=== PATIENT | male | born 2000 | race Caucasian/White ===

== ENCOUNTER 2025-02-25 14:04 | Outpatient (CLI) | payer OTHER, SELFPAY | END 2025-02-25 14:05 | disposition home or self-care (01) | LOC: AMB 02-28 18:43 | PROVIDERS: Visit Provider Emergency Medicine | DX: S49.92XA Unspecified injury of left shoulder and upper arm, initial encounter (principal); V44.5XXA Car driver injured in collision with heavy transport vehicle or bus in traffic accident, initial encounter; Y92.410 Unspecified street and highway as the place of occurrence of the external cause | CPT/HCPCS: A0425; A0429 ==

== ENCOUNTER 2025-02-25 14:39 | Emergency (ER) | payer OTHER, SELFPAY ==
--- OUTSIDE RECORDS SUMMARY | 2024-10-25 06:30 | XMS_ITS ---
Author Organization [facility] Address [address] [place] [address] [address] [place] [address] Care Team Providers Care Lead Manufacturing Engineering Tech Name Role Phone Yuniel Camejo Primary Care Provider [phone] Yesi Abbott Unavailable Unavailable Sonya Allen Unavailable [phone] REASON FOR VISIT LVM for pt regarding missed appt, reminded of next appt Encounters Encounter Location Date Provider Diagnosis [facility] [address] [place] [address] 10/25/2024 Sonya Allen Cervicalgia M54.2 ; Low back pain, unspecified M54.50 ; Dorsalgia, unspecified M54.9 ; Cervicogenic headache G44.86 and Migraine without aura, not intractable, without status migrainosus G43.009 Assessments Encounter Date Diagnosis (ICD Code) Assessment Notes Treatment Notes Treatment Clinical Notes Section Notes 10/25/2024 Cervicalgia (ICD-10 - M54.2) 10/25/2024 Low back pain, unspecified (ICD-10 - M54.50) 10/25/2024 Dorsalgia, unspecified (ICD-10 - M54.9) 10/25/2024 Cervicogenic headache (ICD-10 - G44.86) 10/25/2024 Migraine without aura, not intractable, without status migrainosus (ICD-10 - G43.009) Plan Of Treatment No Information History and Physical Notes * HPI (History of Present Illness) Category Sub-Category Detail Notes Category Not es *Therapy Visit Status Session Data Today's Se ssion Date: 10/21/2024 Therapy Episode Status: Active Therapy Sessions Completed (#): 31 Authorized PT Visits: 18 PT Visits Compl eted: 14, Expiration Date: 12/01/24 Authorized OT Visits: 18 OT Visits Compl eted: 17 Expiration Date: 12/01/24 PT Goal Review Date: 10/17/2024 OT Goal Review Date: 08/23/2024 Physical Examination Category Sub-Category Detail Notes Section Note s Lumbar Extension Exercise Performance Exercise Torque (ft-lbs): 135 Extension ROM (0): 0 Flexion ROM (72): 45 Repetitions: 15 Rating of Perceived Exertion (0-10): 7.2 Last Rep Status: Met Repetition Goal Exercise Plan: 2 x week Lumbar Extension Positioning & Goals Positioning TDC: 21 CB: 375 at: 0 Femur: 6 Other: Flat Rollers Goals Low Goal Male (80%BW): 184 High Goal Male (100%BW, Max 225): 184 80 % high end goal d/t body composition Isotonic Exercise Machine Summary Exercise Summary Able to increase loads for L E, TR, CE & CR. Tolerated all of these well. Cervical Extension Positioni ng & Goals Positioning Seat Height: 280 TDC: 48 CB: 1.6 at:: 18 deg Other: Footstool Goals Low Goal Male (Max 282): 282 High Goal Male (Max 312): 312 Cervical Extension Exercise Performance Exercise Torque (in-lbs): 264 Extension ROM (0): 0 Flexion ROM (126): 126 Repetitions: 15 RPE (0-10): 4 Last Rep Status: Met Repetition Goal Exercise Plan: 1 x week Cervical Rotation Positioning & Goals Positioning Seat Hei ght: 50 Back Pad: 3 inch Head Pad: Low Goals Low Goal Male (Max 80): 80 High Goal Male (Max 110): 110 Cervical Rotation Exercise Performance Exercise Torque ( in-lbs): 84 Rotation Left (60-72): 60 Rotation Right (60-72): 60 Left Repetitions: 22 Right Repetitions: 15 RPE (0-10): 5 Last Rep Status: Met Repetition Goal Exercise Plan: 1 x week Torso Rotation Positioning & Goals Positioning [place]: 4.0 Footboard: 2 Goals Low Goal Male (40%BW): 90 High Goal Male (45%BW, Max 110): 103 Torso Rotation Exercise Performance Exercise Torque (ft- lbs): 92 Rotation Left (48): 42 Rotation Right (48): 42 Left Repetitions: 15 *Prefers to start w / L side Right Repetitions: 15 RPE (0-10): 8 Last Rep Status: Met Exertion Goal, Met Repetition Goal Exercise Plan: 2 x week Progress Notes * Peter MURRIETA JDOB: [birth year] (24 yo M)Acc No.[id number]:10/25/2024 Daily Note Patient: Peter Duran Provider: Lianne Allen DPT :2000 A ge:24 Y S ex:Male Date:10/25/2024 Phone: Address:[address] [place] [address] [place]OS, [phone] Pcp:Yuniel Camejo Subjective: * Chief Complaints: * L VM for pt regarding missed appt, reminded of next appt * HPI: * Therapy Visit Status: Session Data T loreta's Session Date 0 10/21/2024 T herapy Episode Status A ctive T herapy Sessions Completed (#) 3 1 A uthorized PT Visits 1 8 PT Visits Completed: 14, Expiration Date: 12/01/24 A uthorized OT Visits 1 8 OT Visits Completed: 17 Expiration Date: 12/01/24 P T Goal Review Date 0 10/17/2024 O T Goal Review Date 0 08/23/2024 T herapy Visit Subjective: Still dealing w/ irritation in the L side of his neck. Notes that the machines (in particular cervical MedX) has been giving him migraines. Needs to leave session early. Objective: * Physical Examination: C ervical Extension Positioning & Goals: Positioning S eat Height 2 80 T DC 4 8 C B 1 .6 a t: 1 8 deg O ther F ootstool Goals L ow Goal Male (Max 282) 2 82 H igh Goal Male (Max 312) 3 12 C ervical Extension Exercise Performance: Exercise T orque (in-lbs) 2 64 E xtension ROM (0) 0 F lexion ROM (126) 1 26 R epetitions 1 5 R PE (0-10) 4 L ast Rep Status M et Repetition Goal E xercise Plan 1 x week L umbar Extension Positioning & Goals: Positioning T DC 2 1 C B 3 75 a t 0 F emur 6 O ther F lat Rollers Goals L ow Goal Male (80%BW) 1 84 H igh Goal Male (100%BW, Max 225) 1 84 80% high end goal d/t body composition L umbar Extension Exercise Performance: Exercise T orque (ft-lbs) 1 35 E xtension ROM (0) 0 F lexion ROM (72) 4 5 R epetitions 1 5 R ating of Perceived Exertion (0-10) 7 .2 L ast Rep Status M et Repetition Goal E xercise Plan 2 x week C ervical Rotation Positioning & Goals: Positioning S eat Height 5 0 B ack Pad 3 inch H ead Pad L ow Goals L ow Goal Male (Max 80) 8 0 H igh Goal Male (Max 110) 1 10 C ervical Rotation Exercise Performance: Exercise T orque (in-lbs) 8 4 R otation Left (60-72) 6 0 R otation Right (60-72) 6 0 L eft Repetitions 2 2 R ight Repetitions 1 5 R PE (0-10) 5 L ast Rep Status M et Repetition Goal E xercise Plan 1 x week T orso Rotation Positioning & Goals: Positioning G ate 4 .0 F ootboard 2 Goals L ow Goal Male (40%BW) 9 0 H igh Goal Male (45%BW, Max 110) 1 03 T orso Rotation Exercise Performance: Exercise T orque (ft-lbs) 9 2 R otation Left (48) 4 2 R otation Right (48) 4 2 L eft Repetitions 1 5 *Prefers to start w/ L side R ight Repetitions 1 5 R PE (0-10) 8 L ast Rep Status M et Exertion Goal, Met Repetition Goal E xercise Plan 2 x week I sotonic Exercise Machine Summary: Exercise Summary A ble to increase loads for LE, TR, CE & CR. Tolerated all of these well.. Therapeutic Interventions: * Therapeutic Interventions: 1 . * HEP List: Stretch & Releases Neck Stretching HEP : Upper Trapezius, Levator Scapulae, Scalene, tennis ball for self release at scap, Occipital Release Qsovl-Trui-Hxlhryps Stretching HEP : Scapular and Thoracic Stretch (Needle) - Quadruped Low Back and Hip Stretching HEP : Single KTC (supine) one leg straight, Trunk Rotation (double knee), Hamstring (using strap), Piriformis (modified supine), Hamstring (seated), roller tool for HS release 2 . * HEP List: Strength & Function Neck Strength HEP : Cervical Deep Neck Flexor (Supine Head Nod) Mid-Back Strength HEP : - Band Row (40#)- Band Pull Back (30#)-, 3 Position Lift- Chest Press,-, Tricep Press Low Back & Core Strength HEP : Lower Abdominal L2, side lying leg raise Hip & Core Strength HEP : Bridge with SB, Sit to Stand L1, Pallof Press 3 . * Patient Education List Education Provided : Functional Activity Goals, Ch 3: Self Treatments - Release, Ice, Heat * Therapy Assessment and Plan: 1. T herapy Session Assessment Summary : Pt doing well since last session, no major changes. Does still have increased irritation on the L side of his neck. Reports that he is also still getting migraines after using cervical MedX, wants to continue to utilize and his migraines are decreased in intensity with limited reps. Able to increase loads for all 4 MedX machines today - LE, CR, CE, & TR. Tolerated all of these well. [place] session d/t him needing to leave early 2. * Therapy Session Plan Plan Details : *Patient Valued Goals/Activities: full duty for work, standing tolerance, walking*MD/CATHY Follow Up Plan: after [address] Camejo,*Visits Need Insurance Auth after: 18 visits of OT and 18 of PT,* Incoming Referral Tracking - YES per visit status,wants to focus on building HEP for exercise routine for home use and gym usePlan:- MedX: LE, RT, CE, CR, glute machine,- alternate cervcial to start, LB is priority- Review stretches and TPR,- review SANCHEZ management- intro midback and core strengthening- Functional training with the following focus: improving capacity with all lifts Assessment: * Assessment: 1. L ow back pain, unspecified - M54.50 (Primary) 2 . C ervicalgia - M54.2? 3. D orsalgia, unspecified - M54.9 4 . C ervicogenic headache - G44.86 5 . M igraine without aura, not intractable, without status migrainosus - G43.009 Billing Information: * Procedure Codes: * Electronic signature of Petra Allen DPT on 02/25/2025 at 03:48 PM ELECTRICIAN SHOP Sign off status: Pending * Provider: Lianne Allen DPT Date: 0 10/25/2024 Generated for Lisette wheeler/Umesh/Amy on: 04/27/2024 03:48 PM ELECTRICIAN SHOP
--- OUTSIDE RECORDS SUMMARY | 2024-10-31 06:30 | XMS_ITS ---
Author Organization [facility] Address [address] [place] [address] [address] [place] [address] Care Team Providers Care Bottoming Machine Operator Name Role Phone Yuniel Camejo Primary Care Provider Yesi Abbott Unavailable Unavailable Sonya Allen Unavailable [phone] Encounters Encounter Location Date Provider Diagnosis [facility] [address] [place] [address] 10/31/2024 Sonya Allen Plan Of Treatment No Information Progress Notes * Peter MURRIETA JDOB: [birth year] (24 yo M)Acc No.[id number]:10/31/2024 Daily Note Patient: Peter Duran Provider: Lianne Allen DPT :2000 A ge:24 Y S ex:Male Date:10/31/2024 Phone: Address:[address] [place] [address], [place] [phone] Pcp:Yuniel Camejo Billing Information: * Procedure Codes: * Electronic signature of Petra Allen DPT on 02/25/2025 at 03:48 PM PIER WORKER Sign off status: Pending * Provider: Lianne Allen DPT Date: 10/31/2024 Generated for Lisette wheeler/Umesh/eTransmitting on: 04/27/2024 03:48 PM PIER WORKER
--- OUTSIDE RECORDS SUMMARY | 2025-01-11 08:30 | XMS_ITS | Encounter Summary ---
Author Organization [place] Address [address] [facility] [place] [address] Care Team Providers Care Suction Dredge Dumping Supervisor Name Role Phone Evan Navarro MD Unavailable [phone] Bernie Florez PA-C Unavailable Marisol Palma APRN VACUUM DRIER OPERATOR Unavailable Bernie Florez PA-C Primary Care Pro vider Leidy Richard PA-C Unavailable [phone] Encounter Details Date Type Department Care Team (Late st Contact Info) Description 01/11/2025 9:30 AM CDT Lab [facility] [address] [place] [address] Hypotestosteronemia in male Social History Tobacco Use Types Packs/Day Years Used Date Smoking Tobacco: Former Cigarettes Smokeless Tobacco: Current Comments:pouches Alcohol Use Standard Drinks/Week Comments Yes 0 (1 standard drink = 0.6 oz pur e alcohol) Social Connection and Isolation Panel Answer Date Recorded Frequency of Communication with Friends and Fami ly Not on file 12/04/2023 How often do you get together with friends or re latives? Once a week 12/04/2023 Attends Shinto Services Not on file 12/03 Active Member of Clubs or Organizations Not on f ile 12/04/2023 Attends Club or Organization Meetings Not on lincoln e 12/04/2023 Marital Status Not on file 12/04/2023 PHQ-2 Answer Date Recorded PHQ-2 Score 6 04/01/2024 [facility] - Occupational Stress Questionnaire Answer Date Recorded Do you feel stress - tense, restless, nervous, or anxious, or unable to sleep at night because your mind is troubled all the time - these days? To some extent 12/04/2023 Exercise Vital Sign Answer Date Recorde d On average, how many days pe r week do you engage in moderate to strenuous exercise (like a brisk walk)? 0 days Minutes of Exercise per Session Not on file 12/04/2023 Adolescent Education Answer Date Record ed Getting School Help Needed Not on file 12/20 Food Insecurity Answer Date Recorded Within the past 12 months, d id you worry that your food would run out before you got money to buy more? No 12/04/2023 Within the past 12 months, d id the food you bought just not last and you didn t have money to get more? No 12/04/2023 Housing Stability Answer Date Recorded Do you have housing? (Padmini g is defined as stable permanent housing and does not include staying outside in a car, in a tent, in an abandoned building, in an overnight mcfp, or couch-surfing.) Yes 12/04/2023 Are you worried about losing your housing? No 12/04/2023 Financial Resource Strain Answer Date R ecorded Within the past 12 months, h ave you or your family members you live with been unable to get utilities (heat, electricity) when it was really needed? No 12/04/2023 Transportation Needs Answer Date Record ed Within the past 12 months, h as lack of transportation kept you from medical appointments, getting your medicines, non-medical meetings or appointments, work, or from getting things that you need? No 12/04/2023 Interpersonal Safety Answer Date Record ed Do you feel physically and e motionally safe where you currently live? Yes 08/11/2024 Within the past 12 months, h ave you been hit, slapped, kicked or otherwise physically hurt by someone? No 08/11/2024 Within the past 12 months, h ave you been humiliated or emotionally abused in other ways by your partner or ex-partner? No 08/11/2024 Sex and Gender Information Value Date Recorded Sex Assigned at Male 01/27/2022 6:52 AM CDT Legal Sex Male 1:00 PM CDT Gender Identity Male 01/27/2022 6:52 AM CDT Sexual Orientation Straight 01/27/2022 6: 52 AM CDT documented as of this encounter Plan of Treatment Upcoming Encounters Date Type Department Care Team (Late st Contact Info) Description 03/14/2025 1:30 PM LAB NURSE Office Visit [place] [address] [address] [place] [phone] 03/15/2025 8:30 AM LAB NURSE Documentation Only [facility] [address] [place] [address] [place] [phone] 07/20/2025 9:00 AM CDT Office Visit [place] [address] [place] [phone] Leidy Richard PA-C [address] [place] [id number] documented as of this encounter Procedures Procedure Name Priority Date/Time Associated Diagnosis Comments TESTOSTERONE FREE AND TOTAL Routine 01/11/2025 9:42 AM CDT Hypotestosteronemia in male SEX HORMONE BINDING GLOBULIN Routine 01/11/2025 9:42 AM CDT Hypotestosteronemia in male TESTOSTERONE FREE AND TOTAL Routine 01/11/2025 9:42 AM CDT Hypotestosteronemia in male documented in this encounter Results * Testosterone Free and Total (01/11/2025 9:42 AM CDT) Free Testosterone Calculated 8.07 ng/dL 01/13/2025 2:01 PM CDT [facility] Comment: Male Pj Ranges: Pj Stage I: Less than or equal to 0.37 ng/dL Pj Stage II: 0.03-2.1 ng/dL Pj Stage III: 0.10-9.8 ng/dL Pj Stage IV: 3.5-16.9 ng/dL Pj Stage V: 4.1-23.9 ng/dL Testosterone Total 271 240 - 950 ng/dL 01/13/2025 2:01 PM CDT [facility] Blood BLOOD SPECIMEN / Unknown Venipuncture / Unknown 01/11/2025 9:42 AM CDT 01/11/2025 9:42 AM CDT Narrative [facility] - 01/13/2025 2:01 PM CDT This test was developed and its performance characteristics determined by the [facility], Special Chemistry Laboratory. It has not been cleared or approved by the FDA. The laboratory is regulated under CLIA as qualified to perform high-complexity testing. This test is used for clinical purposes. It should not be regarded as investigational or for research. Bernie Florez PA-C LAB - BLOOD ORDER MIRNA Final Result Performing Organization Address City/[facility]/ZIP Co de Phone Number SPECIAL DRUG/[facility] Special Drug/[facility] [address] [facility], [address] * Sex Hormone Binding Globulin (01/11/2025 9:42 AM CDT) Sex Hormone Binding Globulin 13 11 - 80 nmol/L 01/11/2025 5:04 PM CDT [facility] Blood BLOOD SPECIMEN / Unknown Venipuncture / Unknown 01/11/2025 9:42 AM CDT 01/11/2025 9:42 AM CDT Bernie Florez PA-C LAB - BLOOD ORDER MIRNA Final Result LABORATORY [facility] [place] [facility] [address] [facility], [address] documented in this encounter Visit Diagnoses Diagnosis Hypotestosteronemia in male documented in this encounter Additional Health Concerns Assessment Noted Time PHQ-9 Depression Total Score: 20 025 10:01 AM LAB NURSE documented as of this encounter Care Teams Suction Dredge Dumping Supervisor Relationship Specialty Start Date End Date Bernie Florez PA-C [address] [place] [address] PCP - General Family Medicine 08/11/24 Evan Navarro MD [address] [facility] [place] [address] Assigned Musculoskeletal Provider 01/25/22 01/18/25 Bernie Florez PA-C [address] [address] [place] [address] Assigned PCP 07/05/22 Marisol Palma APRN CNP [address] [place], [place] [address] Assigned Neuroscience Provider 12/21/23 Leidy Richard PA-C [address] [facility] [place] [address] [place] [address] Assigned Sleep Provider 12/20/24 documented as of this encounter
--- OUTSIDE RECORDS SUMMARY | 2025-01-16 07:00 | XMS_ITS | Encounter Summary ---
Author Organization [place] Address [address] [place] [address] Care Team Providers Care Costume Technician Name Role Phone Evan Navarro MD Unavailable [phone] Bernie Florez PA-C Unavailable Marisol Palma APRN, CNP Unavailable Bernie Florez PA-C Primary Care Pro vider Leidy Richard PA-C Unavailable [phone] Reason for Visit * Reason Comments RECHECK Encounter Details Date Type Department Care Team (Latest Contact Info) Description 01/16/2025 8:00 AM CDT Virtual Visit [facility] [address] [place] [phone] Bernie Florez PA-C [address] [place], [place] [phone] (Fax) Attention deficit hyperactivity disorder (ADHD), predominantly inattentive type (Primary Dx); Hypotestosteronemia in male Social History Tobacco Use [...] re latives? Once a week 12/04/2023 Attends Mandaeism Services Not on file 12/03 Active Member of Clubs or Organizations Not on f ile 12/04/2023 Attends Club or Organization Meetings Not on lincoln e 12/04/2023 Marital Status Not on file 12/04/2023 PHQ-2 Answer Date Recorded PHQ-2 Score 6 04/01/2024 [facility] - Occupational Stress Questionnaire Answer Date Recorded [...] in an abandoned building, in an overnight half-way, or couch-surfing.) Yes 12/04/2023 Are you worried [...] AM CDT documented as of this encounter Progress Notes * Bernie Florez PA-C - 01/16/2025 8:00 AM CDT Peter is a 24 year old who is being evaluated via a billable video visit. How would you like to obtain your AVS? MyChart If the video visit is dropped, the invitation should be resent by: Text to cell phone: [phone] Will anyone else be joining your video visit? 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 Dose working well Plan: amphetamine-dextroamphetamine (ADDERALL) 20 MG tablet, amphetamine-dextroamphetamine (ADDERALL) 20 MG tablet, amphetamine-dextroamphetamine (ADDERALL) 20 MG tablet (E29.1) Hypotestosteronemia in male Comment: refill the 1.62% as this is less pumps - increase to 2 pumps daily Plan: testosterone (ANDROGEL 1.62 % PUMP) 20.25 MG/ACT (1.62%) gel Subjective Peter is a 24 year old, presenting for the following health issues: RECHECK 01/16/2025 8:03 AM Additional Questions Roomed by СЕРГЕЙ Mccarthy HPI Follow up on Testosterone therapy Things are good enough? Positives: Has been able to work out better. Recovery time post work out seems to be quicker Mood has generally been better Negatives: Still pretty tired most of time Applying it to his upper shoulders Ran out of he 1.62% (was only doing one pump) Back to the 1% because he still had refills on it Stopped taking his adderall for 1.5 months because he just wanted to take a break from it Now it is working a lot better Review of Systems Constitutional, neuro, ENT, endocrine, pulmonary, cardiac, gastrointestinal, genitourinary, musculoskeletal, integument and psychiatric systems are negative, except as otherwise noted. Objective Vitals: No vitals were obtained today due to virtual visit. Physical Exam GENERAL: alert and no distress EYES: Eyes grossly normal to inspection. No discharge or erythema, or obvious scleral/conjunctival abnormalities. RESP: No audible wheeze, cough, or visible cyanosis. SKIN: Visible skin clear. No significant rash, abnormal pigmentation or lesions. NEURO: Cranial nerves grossly intact. Mentation and speech appropriate for age. PSYCH: Appropriate affect, tone, and pace of words Diagnostic Tests: reviewed testosterone levels Video-Visit Details Type of service: Video Visit Originating Location (pt. Location): Home Distant Location (provider location): On-site Platform used for Video Visit: Merna Signed Electronically by: Bernie Florez PA-C documented in this encounter Plan of Treatment Upcoming Encounters Date Type Department Care Team (Late st Contact Info) Description 03/14/2025 1:30 PM NAVAL SURFACE FIRE SUPPORT PLANNER Office Visit [place] [address] [address] [phone] 03/15/2025 8:30 AM NAVAL SURFACE FIRE SUPPORT PLANNER Documentation Only [place] [address] [place] [phone] 07/20/2025 9:00 AM CDT Office Visit [place] [address] [place] [phone] Leidy Richard PA-C [address] [place] [address] [place] [address] documented as of this encounter Visit Diagnoses Diagnosis Attention deficit hyperactivity disorder (ADHD), predominantly inattentive type- Primary Hypotestosteronemia in male documented in this encounter Additional Health Concerns Assessment Noted Time PHQ-9 Depression Total Score: 20 01/03/2 025 10:01 AM NAVAL SURFACE FIRE SUPPORT PLANNER documented as of this encounter Care Teams Costume Technician Relationship Specialty Start Date End Date Bernie Florez PA-C [address] [place] [address] PCP - General Family Medicine 08/11/24 Evan Navarro MD [address] [facility] [place] [id number] Assigned Musculoskeletal Provider 01/25/22 01/18/25 Bernie Florez PA-C [address] [place] [address] Assigned PCP 07/05/22 Marisol Palma APRN CNP [address] [place], [place] [address] Assigned Neuroscience Provider 12/21/23 Leidy Richard PA-C [address] [facility] [place] [address] Assigned Sleep Provider 12/20/24 documented as of this encounter
--- OUTSIDE RECORDS SUMMARY | 2025-02-02 11:00 | XMS_ITS | Encounter Summary ---
Author Organization [facility] Address [address] [place] [address] Care Team Providers Care Regional Hr Manager Name Role Phone Bernie Florez PA-C Unavailable Marisol Palma APRN WASTE SPECIALIST Unavailable Bernie Florez PA-C Primary Care Pro vider Leidy Richard PA-C Unavailable + [phone] Reason for Visit * Reason Comments Physical Encounter Details Date Type Department Care Team (Late st Contact Info) Description 02/02/2025 11:00 AM REPORTER ANCHOR Office Visit [facility] [address] [place] [phone] Bernie Florez PA-C [address] [place], [place] [phone] (Fax) Routine general medical examination at a health care facility (Primary Dx); Testosterone deficiency; Lumbar radiculopathy; CARDIOVASCULAR SCREENING; LDL GOAL LESS THAN 160; 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 To some extent 02/02/2025 Exercise Vital Sign Answer Date Recorde d On average, how many days pe r week do you engage in moderate to strenuous exercise (like a brisk walk)? 3 days Minutes of Exercise per Session Not on file 02/02/2025 Adolescent Education Answer Date Record ed Getting School Help Needed Not on file 12/20 Social Connections Answer Date Recorded How often do you feel lonely or isolated from those around you? Sometimes 02/02/2025 Food Insecurity Answer Date Recorded Within the past 12 months, d id you worry that your food would run out before you got money to buy more? Yes 02/02/2025 Within the past 12 months, d id the food you bought just not last and you didn t have money to get more? No 02/02/2025 Housing Stability Answer Date Recorded Do you have housing? (Housin g is defined as stable permanent housing and does not include staying outside in a car, in a tent, in an abandoned building, in an overnight skilled nursing, or couch-surfing.) Yes 02/02/2025 Are you worried about losing your housing? No 02/02/2025 Financial Resource Strain Answer Date R ecorded Within the past 12 months, h ave you or your family members you live with been unable to get utilities (heat, electricity) when it was really needed? No 02/02/2025 Transportation Needs Answer Date Record ed Within the past 12 months, h as lack of transportation kept you from medical appointments, getting your medicines, non-medical meetings or appointments, work, or from getting things that you need? No 02/02/2025 Interpersonal Safety Answer Date Record ed Do you feel physically and e motionally safe where you currently live? Yes 02/02/2025 Within the past 12 months, h ave you been hit, slapped, kicked or otherwise physically hurt by someone? No 02/02/2025 Within the past 12 months, h ave you been humiliated or emotionally abused in other ways by your partner or ex-partner? No 02/02/2025 Sex and Gender Information Value Date Recorded Sex Assigned at Male 01/27/2022 6:52 AM CDT Legal Sex Male 1:00 PM CDT Gender Identity Male 01/27/2022 6:52 AM CDT Sexual Orientation Straight 01/27/2022 6: 52 AM CDT documented as of this encounter Last Filed Vital Signs Vital Sign Reading Time Taken Comments Blood Pressure 126/72 02/02/2025 10:48 AM REPORTER ANCHOR Pulse 94 02/02/2025 10:48 AM REPORTER ANCHOR Temperature 36.3 C (97.4 F) 02/02/2025 10:48 AM REPORTER ANCHOR Respiratory Rate 16 02/02/2025 10:48 AM REPORTER ANCHOR Oxygen Saturation 98% 02/02/2025 10:48 AM REPORTER ANCHOR Inhaled Oxygen Concentration - - Weight 110.2 kg (243 lb) 02/02/2025 10:48 AM REPORTER ANCHOR Height 172.7 cm (5' 8) 02/02/2025 10:48 AM REPORTER ANCHOR Body Mass Index 36.95 02/02/2025 10:48 AM REPORTER ANCHOR documented in this encounter Patient Instructions * Patient Instructions* Fabio Pagan - 02/02/2025 11:00 AM REPORTER ANCHOR Patient Education Preventive Care Advice This is general advice we often give to help people stay healthy. Your care team may have specific advice just for you. Please talk to your care team about your own preventive care needs. Lifestyle Exercise at least 150 minutes each week (30 minutes a day, 5 days a week). Do muscle strengthening activities 2 days a week. These help control your weight and prevent disease. No smoking. Wear sunscreen to prevent skin cancer. Take time with family and friends. Have your home tested for radon every 2 to 5 years. Radon is a colorless, odorless gas that can harm your lungs. To learn more, go to www.health.firsthealth.al. and search for Radon in Homes. Keep guns unloaded and locked up in a safe place like a safe or gun vault, or, use a gun lock and hide the keys. Always lock away bullets separately. To learn more, visit [place].gov and search for safe gun storage. Nutrition Eat 5 or more servings of fruits and vegetables each day. Try wheat bread, brown rice and whole grain pasta (instead of white bread, rice, and pasta). Get enough calcium and vitamin D. Check the label on foods and aim for 100% of the BUSINESS SERVICES REPRESENTATIVE (recommendeddaily allowance). Regular exams Have a dental exam and cleaning every 6 months. Older adults: Ask your care team how often to have memory testing. See your health care team every year to talk about: Any changes in your health. Any medicines your care team has prescribed. Preventive care, family planning, and ways to prevent chronic diseases. Shots (vaccines) HPV shots (up to age 26), if you've never had them before. Hepatitis B shots (up to age 59), if you've never had them before. COVID-19 shot: Get this shot when it's due. Flu shot: Get a flu shot every year. Tetanus shot: Get a tetanus shot every 10 years. Pneumococcal, hepatitis A, and RSV shots: Ask your care team if you need these based on your risk. Shingles shot (for age 50 and up). General health tests Diabetes screening: Starting at age 35, Get screened for diabetes at least every 3 years. If you are younger than age 35, ask your care team if you should be screened for diabetes. Cholesterol test: At age 39, start having a cholesterol test every 5 years, or more often if advised. Bone density scan (DEXA): At age 50, ask your care team if you should have this scan for osteoporosis (brittle bones). Hepatitis C: Get tested at least once in your life. Abdominal aortic aneurysm screening: Talk to your doctor about having this screening if you: Have ever smoked; and Are biologically male; and Are between the ages of 65 and 75. STIs (sexually transmitted infections) Before age 24: Ask your care team if you should be screened for STIs. After age 24: Get screened for STIs if you're at risk. You are at risk for STIs (including HIV) if: You are sexually active with more than one person. You don't use condoms every time. You or a partner was diagnosed with a sexually transmitted infection. If you are at risk for HIV, ask about PrEP medicine to prevent HIV. Get tested for HIV at least once in your life, whether you are at risk for HIV or not. Cancer screening tests Cervical cancer screening: If you have a cervix, begin getting regular cervical cancer screening tests at age 21. Most people who have regular screenings with normal results can stop after age 65. Talk about this with your provider. Breast cancer scan (mammogram): If you've ever had breasts, begin having regular mammograms starting at age 40. This is a scan to check for breast cancer. Colon cancer screening: It is important to start screening for colon cancer at age 45. Have a colonoscopy test every 10 years (or more often if you're at risk) Or, ask your provider about stool tests like a FIT test every year or Cologuard test every 3 years. To learn more about your testing options, visit: www.Mango DSP/214059.pdf. For help making a decision, visit: americo/yz76021. Prostate cancer screening test: If you have a prostate and are age 55 to 69, ask your provider if you would benefit from a yearly prostate cancer screening test. Lung cancer screening: If you are a current or former smoker age 50 to 80, ask your care team if ongoing lung cancer screenings are right for you. For informational purposes only. Not to replace the advice of your health care provider. Copyright ?? 2022 [employer]. All rights reserved. Clinically reviewed by the [facility] [facility]. Cloudy.fr 591385 - REV 09/21. Relationships for Good Health Relationships are important for our health and happiness. Social isolation, loneliness and lack of support are bad for your health. Studies show that loneliness can harm health and limit your life span as much as high blood pressure and smoking. Take some time to reflect on your relationships. Then answer these questions: Are there people in your life that cause you stress or drain your energy? What can you do to set limits? Who do you enjoy spending time with? Who can you go to for support? What can you do to improve your relationships with others? What do you like most about your relationships with others? My goal: I will: For informational purposes only. Not to replace the advice of your health care provider. Copyright ?? 2018 [facility]. All rights reserved. Clinically reviewed by [facility] [employer]. Cloudy.fr 613742 - Rev 09/20. Learning About Stress What is stress? Stress is your body's response to a hard situation. Your body can have a physical, emotional, or mental response. Stress is a fact of life for most people, and it affects everyone differently. What causes stress for you may not be stressful for someone else. A lot of things can cause stress. You may feel stress when you go on a job interview, take a test, or run a race. This kind of short-term stress is normal and even useful. It can help you if you needto work hard or react quickly. For example, stress can help you finish an important job on time. Long-term stress is caused by ongoing stressful situations or events. Examples of long-term stress include long-term health problems, ongoing problems at work, or conflicts in your family. Long-term stress can harm your health. How does stress affect your health? When you are stressed, your body responds as though you are in danger. It makes hormones that speedup your heart, make you breathe faster, and give you a burst of energy. This is called the tqdqc-sl-xuatzy stress response. If the stress is over quickly, your body goes back to normal and no harm isdone. But if stress happens too often or lasts too long, it can have bad effects. Long-term stress can make you more likely to get sick, and it can make symptoms of some diseases worse. If you tense up when you are stressed, you may develop neck, shoulder, or low back pain. Stress is linked to high bloodpressure and heart disease. Stress also harms your emotional health. It can make you saavedra, tense, or depressed. Your relationships may suffer, and you may not do well at work or school. What can you do to manage stress? You can try these things to help manage stress: Do something active. Exercise or activity can help reduce stress. Walking is a great way to get started. Even everyday activities such as housecleaning or yard work can help. Try yoga or vanda chi. These techniques combine exercise and meditation. You may need some training at first to learn them. Do something you enjoy. For example, listen to music or go to a movie. Practice your hobby or do volunteer work. Meditate. This can help you relax, because you are not worrying about what happened before or what may happen in the future. Do guided imagery. Imagine yourself in any setting that helps you feel calm. You can use online videos, books, or a teacher to guide you. Do breathing exercises. For example: From a standing position, bend forward from the waist with your knees slightly bent. Let your arms dangle close to the floor. Breathe in slowly and deeply as you return to a standing position. Roll up slowly and lift your head last. Hold your breath for just a few seconds in the standing position. Breathe out slowly and bend forward from the waist. Let your feelings out. Talk, laugh, cry, and express anger when you need to. Talking with supportive friends or family, a counselor, or a eduarda leader about your feelings is a healthy way to relieve stress. Avoid discussing your feelings with people who make you feel worse. Write. It may help to write about things that are bothering you. This helps you find out how much stress you feel and what is causing it. When you know this, you can find better ways to cope. What can you do to prevent stress? You might try some of these things to help prevent stress: Manage your time. This helps you find time to do the things you want and need to do. Get enough sleep. Your body recovers from the stresses of the day while you are sleeping. Get support. Your family, friends, and community can make a difference in how you experience stress. Limit your news feed. Avoid or limit time on social media or news that may make you feel stressed. Do something active. Exercise or activity can help reduce stress. Walking is a great way to get started. Where can you learn more? Go to https://www.Drive.SG.net/patiented Enter N032 in the search box to learn more about Learning About Stress. Current as of: January 21, 2024 Content Version: 14.6 ?? 7770-8340 [employer]. Care instructions adapted under license by your healthcare professional. If you have questions about a medical condition or this instruction, always ask your healthcare professional. [employer] disclaims any warranty or liability for your use of this information. RTER ANCHOR documented in this encounter Progress Notes * Bernie Florez PA-C - 02/02/2025 11:00 AM CST Preventive Care Visit [facility] Bernie Florez PA-C, Family Medicine Feb 02, 2025 Assessment & Plan (Z00.00) Routine general medical examination at a health care facility (primary encounter diagnosis) Comment: Plan: CBC with platelets and differential, Comprehensive metabolic panel (BMP + Alb, Alk Phos, ALT, AST, Total. Bili, TP), Lipid panel reflex to direct LDL Fasting, TSH with free T4 reflex (E34.9) Testosterone deficiency Comment: finishing up the 1% testosterone that he has currently and then will switch to the 1.62% so it is less pumps Plan: continue the testosterone Will recheck testosterone levels ~3 months after replacement on new/adjusted dose. Once we reach a steady state dose and levels are in desired range then levels only need to be checked every 12 months. If unable to collect at exactly 12 months should he be deployed that would be okay as long as we could check labs prior to deployment and then again on return (M54.16) Lumbar radiculopathy Comment: Plan: progressing. Continue PT exercises and restrictions for physical testing for an additional 6 months (Z13.6) CARDIOVASCULAR SCREENING; LDL GOAL LESS THAN 160 Comment: Plan: Comprehensive metabolic panel (BMP + Alb, Alk Phos, ALT, AST, Total. Bili, TP), Lipid panel reflex to direct LDL Fasting Patient has been advised of split billing requirements and indicates understanding: Yes Counseling Appropriate preventive services were addressed with this patient via screening, questionnaire, or discussion as appropriate for fall prevention, nutrition, physical activity, Tobacco-use cessation, social engagement, weight loss and cognition. Checklist reviewing preventive services available has been given to the patient. Reviewed patient's diet, addressing concerns and/or questions. He is at risk for lack of exercise and has been provided with information to increase physical activity for the benefit of his well-being. Patient is at risk for social isolation and has been provided with information about the benefit ofsocial connection. He is at risk for psychosocial distress and has been provided with information to reduce risk. Reviewed preventive health counseling, as reflected in patient instructions Bebo Green is a 24 year old, presenting for the following: Physical 02/02/2025 10:43 AM Additional Questions Roomed by СЕРГЕЙ Mccarthy Advance Care Planning Discussed advance care planning with patient; however, patient declined at this time. 02/02/2025 General Health How would you rate your overall physical health? Good Feel stress (tense, anxious, or unable to sleep) To some extent (!) STRESS CONCERN 02/02/2025 Nutrition Three or more servings of calcium each day? (!) NO Diet: Regular (no restrictions) How many servings of fruit and vegetables per day? (!) 2-3 How many sweetened beverages each day? 0-1 02/02/2025 Exercise Days per week of moderate/strenous exercise 3 days 02/02/2025 Social Factors Frequency of feeling lonely or isolated Sometimes Worry food won't last until get money to buy more No Food not last or not have enough money for food? Yes Do you have housing? (Housing is defined as stable permanent housing and does not include staying outside in a car, in a tent, in an abandoned building, in an overnight skilled nursing, or couch-surfing.) Yes Are you worried about losing your housing? No Lack of transportation? No Unable to get utilities (heat,electricity)? No (!) FOOD SECURITY CONCERN PRESENT(!) SOCIAL CONNECTIONS CONCERN 02/02/2025 Dental Dentist two times every year? Yes 02/02/2025 Substance Use Alcohol more than 3/day or more than 7/wk Not Applicable Do you use any other substances recreationally? No Social History Tobacco Use Smoking status: Former Types: Cigarettes Smokeless tobacco: Current Tobacco comments: pouches Vaping Use Vaping status: Never Used Substance Use Topics Alcohol use: Yes Drug use: Never 02/02/2025 STI Screening New sexual partner(s) since last STI/HIV test? No 02/02/2025 Contraception/Family Planning Questions about contraception or family planning No Reviewed and updated as needed this visit by Provider BP Readings from Last 3 Encounters: 02/02/25 126/72 12/08/24 121/86 11/23/24 (!) 143/83 Wt Readings from Last 3 Encounters: 02/02/25 110.2 kg (243 lb) 08/11/24 111.6 kg (246 lb) 05/16/24 112 kg (247 lb) Review of Systems Constitutional, HEENT, cardiovascular, pulmonary, GI, , musculoskeletal, neuro, skin, endocrine and psych systems are negative, except as otherwise noted. Objective Exam BP 126/72 Pulse 94 Temp 97.4 ??F (36.3 ??C) (Tympanic) Resp 16 Ht 1.727 m (5' 8) Wt 110.2 kg (243 lb) SpO2 98% BMI 36.95 kg/m?? Estimated body mass index is 36.95 kg/m?? as calculated from the following: Height as of this encounter: 1.727 m (5' 8). Weight as of this encounter: 110.2 kg (243 lb). Physical Exam GENERAL: alert and no distress EYES: Eyes grossly normal to inspection, PERRL and conjunctivae and sclerae normal HENT: ear canals and TM's normal, nose and mouth without ulcers or lesions NECK: no adenopathy, no asymmetry, masses, or scars RESP: lungs clear to auscultation - no rales, rhonchi or wheezes CV: regular rate and rhythm, normal S1 S2, no S3 or S4, no murmur, click or rub, no peripheral edema ABDOMEN: soft, nontender, no hepatosplenomegaly, no masses and bowel sounds normal MS: no gross musculoskeletal defects noted, no edema SKIN: no suspicious lesions or rashes NEURO: Normal strength and tone, mentation intact and speech normal PSYCH: mentation appears normal, affect normal/bright Signed Electronically by: Bernie Florez PA-C RTER ANCHOR documented in this encounter Plan of Treatment Upcoming Encounters Date Type Department Care Team (Late st Contact Info) Description 03/14/2025 1:30 PM REPORTER ANCHOR Office Visit [place] [address] [address] [place] [phone] 03/15/2025 8:30 AM REPORTER ANCHOR Documentation Only [place] [address] [address] [place] [phone] 07/20/2025 9:00 AM CDT Office Visit [place] [address] [place] [phone] Leidy Richard PA-C [address] [place] [address] Scheduled Orders Name Type Priority Associated Diagnoses Orde r Schedule Testosterone total Lab Routine Hypotestosteronemia in male Expected: 02/02/2025 (Approximate), Expires: 02/02/2026 documented as of this encounter Procedures Procedure Name Priority Date/Time Associated Diagnosis Comments CBC WITH PLATELETS AND DIFFERENTIAL Routine 02/02/2025 11:22 AM REPORTER ANCHOR Routine general medical examination at a health care facility EXTRA RED TOP TUBE (LAB USE ONLY) Routine 02/02/2025 11:22 AM REPORTER ANCHOR Hypotestosteronemia in male CBC WITH PLATELETS & DIFFERENTIAL Routine 02/02/2025 11:22 AM REPORTER ANCHOR Routine general medical examination at a health care facility TSH WITH FREE T4 REFLEX Routine 02/02/2025 11:22 AM REPORTER ANCHOR Routine general medical examination at a health care facility PROSTATE SPECIFIC ANTIGEN SCREEN Add-On 02/02/2025 11:22 AM REPORTER ANCHOR Routine general medical examination at a health care facility Testosterone deficiency LIPID REFLEX TO DIRECT LDL PANEL Routine 02/02/2025 11:22 AM REPORTER ANCHOR Routine general medical examination at a health care facility CARDIOVASCULAR SCREENING; LDL GOAL LESS THAN 160 COMPREHENSIVE METABOLIC PANEL Routine 02/02/2025 11:22 AM REPORTER ANCHOR Routine general medical examination at a health care facility CARDIOVASCULAR SCREENING; LDL GOAL LESS THAN 160 documented in this encounter Results * Extra Red Top Tube (LAB USE ONLY) (02/02/2025 11:22 AM REPORTER ANCHOR) Hold Specimen [facility] 02/02/2025 2:06 PM REPORTER ANCHOR LABORATORY Blood BLOOD SPECIMEN / Unknown Venipuncture / Unknown 02/02/2025 11:22 AM REPORTER ANCHOR 02/02/2025 12:49 PM REPORTER ANCHOR Bernie Florez PA-C LAB - BLOOD ORDER MIRNA Final Result [facility] [id number] (no room number, 1st floor of clinic) [place] [phone], [facility] * PSA, screen (02/02/2025 11:22 AM REPORTER ANCHOR) Prostate Specific Antigen Screen 1.55 <=2.00 ng/mL 02/02/2025 4:36 PM REPORTER ANCHOR [facility] Blood BLOOD SPECIMEN / Unknown Venipuncture / Unknown 02/02/2025 11:22 AM REPORTER ANCHOR 02/02/2025 11:22 AM REPORTER ANCHOR Narrative [facility] - 02/02/2025 4:36 PM REPORTER ANCHOR This result is obtained using the Devon Elecsys total PSA method on the tunde e601 immunoassay analyzer, which is an ultrasensitive method. Results obtained with different assay methods or kits cannot be used interchangeably. This test is intended for initial prostate cancer screening. PSA values exceeding the age-specific limits are suspicious for prostate disease, but additional testing, such as prostate biopsy, is needed to diagnose prostate pathology. The [place] [employer] recommends annual examination with digital rectal examination and serum PSA beginning at age 50 and for men with a life expectancy of at least 10 years after detection of prostate cancer. For men in high-risk groups, such as Americans or men with a first-degree relative diagnosed at a younger age, testing should begin at a younger age. It is generally recommended that information be provided to patients about the benefits and limitations of testing and treatment so they can make informed decisions. Bernie Florez PA-C LAB - BLOOD ORDER MIRNA Final Result [facility] [address] [place] [phone], [facility] * CBC with platelets and differential (02/02/2025 11:22 AM REPORTER ANCHOR) WBC Count 5.87 4.00 - 11.00 10e3/uL 02/02/2025 11:24 AM REPORTER ANCHOR [facility] RBC Count 5.01 4.40 - 5.90 10e6/uL 02/02/2025 11:24 AM REPORTER ANCHOR [facility] Hemoglobin 14.3 13.3 - 17.7 g/dL 02/02/2025 11:24 AM REPORTER ANCHOR [facility] Hematocrit 42.8 40.0 - 53.0 % 02/02/2025 11:24 AM REPORTER ANCHOR [facility] 85.4 78.0 - 100.0 fL 02/02/2025 11:24 AM RE[facility]TER [facility] MCH 28.5 26.5 - 33.0 pg 02/02/2025 11:24 AM [facility] MCHC 33.4 31.5 - 36.5 g/dL 02/02/2025 11:24 AM [facility] RDW 12.7 10.0 - 15.0 % 02/02/2025 11:24 AM [facility] Platelet Count 246 150 - 450 10e3/uL 02/02/2025 11:24 AM [facility] % Neutrophils 51.3 % 02/02/2025 11:24 AM [facility] % Lymphocytes 29.5 % 02/02/2025 11:24 AM [facility] % Monocytes 9.4 % 02/02/2025 11:24 AM [facility] % Eosinophils 8.5 % 02/02/2025 11:24 AM [facility] % Basophils 1.0 % 02/02/2025 11:24 AM [facility] % Immature Granulocytes 0.3 % 02/02/2025 11:24 AM [facility] Absolute Neutrophils 3.01 1.60 - 8.30 10e3/uL 02/02/2025 11:24 AM [facility] Absolute Lymphocytes 1.73 0.80 - 5.30 10e3/uL 02/02/2025 11:24 AM [facility] Absolute Monocytes 0.55 0.00 - 1.30 10e3/uL 02/02/2025 11:24 AM [facility] Absolute Eosinophils 0.50 0.00 - 0.70 10e3/uL 02/02/2025 11:24 AM [facility] Absolute Basophils 0.06 0.00 - 0.20 10e3/uL 02/02/2025 11:24 AM [facility] Absolute Immature Granulocytes <0.04 <=0.40 10e3/uL 02/02/2025 11:24 AM [facility] Blood BLOOD SPECIMEN / Unknown Venipuncture / Unknown 02/02/2025 11:22 AM REPORTER ANCHOR 02/02/2025 11:22 AM REPORTER ANCHOR Bernie Florez PA-C LAB - BLOOD ORDER MIRNA Final Result LABORATORY [facility] [address] [address] [facility] (no room number, 1st floor of clinic) [place] [address], [facility] * TSH with free T4 reflex (02/02/2025 11:22 AM REPORTER ANCHOR) TSH 1.68 0.30 - 4.20 uIU/mL 02/02/2025 4:36 PM [facility] Blood BLOOD SPECIMEN / Unknown Venipuncture / Unknown 02/02/2025 11:22 AM REPORTER ANCHOR 02/02/2025 11:22 AM REPORTER ANCHOR Bernie Florez PA-C LAB - BLOOD ORDER MIRNA Final Result [facility] [address] [place] [address] * (ABNORMAL) Lipid panel reflex to direct LDL Fasting (02/02/2025 11:22 AM REPORTER ANCHOR) Cholesterol 158 <200 mg/dL 02/02/2025 4:36 PM [facility] Triglycerides 131 <150 mg/dL 02/02/2025 4:36 PM [facility] Direct Measure HDL 37(L) >=40 mg/dL 2024 4:36 PM [facility] LDL Cholesterol Calculated 95 <100 mg/dL 02/02/2025 4:36 PM [facility] Comment:LDL calculated using the Friedewald equation. Non HDL Cholesterol 121 <130 mg/dL 02/02/2025 4:36 PM [facility] Patient Fasting > 8hrs? No 02/02/2025 4:36 PM [facility] Blood BLOOD SPECIMEN / Unknown Venipuncture / Unknown 02/02/2025 11:22 AM REPORTER ANCHOR 02/02/2025 11:22 AM REPORTER ANCHOR Narrative [facility] - 02/02/2025 4:36 PM REPORTER ANCHOR Cholesterol Desirable: < 200 mg/dL Borderline High: 200 - 239 mg/dL High: >= 240 mg/dL Triglycerides Normal: < 150 mg/dL Borderline High: 150 - 199 mg/dL High: 200-499 mg/dL Very High: >= 500 mg/dL Direct Measure HDL Female: >= 50 mg/dL Male: >= 40 mg/dL LDL Cholesterol Desirable: < 100 mg/dL Above Desirable: 100 - 129 mg/dL Borderline High: 130 - 159 mg/dL High: 160 - 189 mg/dL Very High: >= 190 mg/dL Non HDL Cholesterol Desirable: < 130 mg/dL Above Desirable: 130 - 159 mg/dL Borderline High: 160 - 189 mg/dL High: 190 - 219 mg/dL Very High: >= 220 mg/dL Bernie Florez PA-C LAB - BLOOD ORDER MIRNA Final Result [facility] Acute Care Lab [address]. [address] [place] [address] * Comprehensive metabolic panel (BMP + Alb, Alk Phos, ALT, AST, Total. Bili, TP) (02/02/2025 11:22 AMCST) Sodium 143 135 - 145 mmol/L 02/02/2025 4:36 PM [facility] Potassium 4.5 3.4 - 5.3 mmol/L 02/02/2025 4:36 PM [facility] Carbon Dioxide (CO2) 26 22 - 29 mmol/L 02/02/2025 4:36 PM [facility] Anion Gap 10 7 - 15 mmol/L 02/02/2025 4:36 PM [facility] Urea Nitrogen 12.3 6.0 - 20.0 mg/dL 02/02/2025 4:36 PM [facility] Creatinine 0.96 0.67 - 1.17 mg/dL 02/02/2025 4:36 PM [facility] GFR Estimate >90 >60 mL/min/1.7 3m2 02/02/2025 4:36 PM REPORTER ANCHOR [facility] Comment:eGFR calculated 2020 CKD-EPI equation. Calcium 9.5 8.8 - 10.4 mg/dL 02/02/2025 4:36 PM [facility] Chloride 107 98 - 107 mmol/L 02/02/2025 4:36 PM [facility] Glucose 90 70 - 99 mg/dL 02/02/2025 4:36 PM [facility] Alkaline Phosphatase 46 40 - 150 U/L 02/02/2025 4:36 PM [facility] AST 26 0 - 45 U/L 02/02/2025 4:36 PM [facility] ALT 52 0 - 70 U/L 02/02/2025 4:36 PM [facility] Protein Total 6.6 6.4 - 8.3 g/dL 02/02/2025 4:36 PM [facility] Albumin 4.4 3.5 - 5.2 g/dL 02/02/2025 4:36 PM [facility] Bilirubin Total 0.2 <=1.2 mg/dL 02/02/2025 4:36 PM [facility] Patient Fasting > 8hrs? No 02/02/2025 4:36 PM [facility] Blood BLOOD SPECIMEN / Unknown Venipuncture / Unknown 02/02/2025 11:22 AM REPORTER ANCHOR 02/02/2025 11:22 AM REPORTER ANCHOR Bernie Florez PA-C LAB - BLOOD ORDER MIRNA Final Result [facility] Acute Care Lab [address]. [address] [place] [address], [facility] documented in this encounter Visit Diagnoses Diagnosis Routine general medical examination at a health care facility- Primary Testosterone deficiency Other testicular hypofunction Lumbar radiculopathy Thoracic or lumbosacral neuritis or radiculitis, unspecified CARDIOVASCULAR SCREENING; LDL GOAL LESS THAN 160 Hypotestosteronemia in male documented in this encounter Additional Health Concerns Assessment Noted Time PHQ-9 Depression Total Score: 20 025 10:01 AM REPORTER ANCHOR documented as of this encounter Care Teams Regional Hr Manager Relationship Specialty Start Date End Date Bernie Florez PA-C [id number] [place] [address] PCP - General Family Medicine 08/11/24 Bernie Florez PA-C [address] [place] [address] Assigned PCP 07/05/22 Marisol Palma APRN WASTE SPECIALIST [address] [place], [place] [address] Assigned Neuroscience Provider 12/21/23 Leidy Richard PA-C [address] [facility] [address] [place], [place] [id number] Assigned Sleep Provider 12/20/24 documented as of this encounter
[2025-02-25 14:44] VITALS: BP 135/94; PULSE 88; RESP 20; TEMP 37.1; O2SAT 98; BMI 35.0
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
--- OUTSIDE RECORDS SUMMARY | 2025-02-25 15:48 | XMS_ITS | Encounter Summary ---
Author Organization [place] Address [address] [facility] [place] [address] Care Team Providers Care Tour Escort Name Role Phone Evan Navarro MD Unavailable [phone] Bernie Florez PA-C Unavailable Marisol Palma APRN CYBER ANALYST Unavailable Bernie Florez PA-C Primary Care Pro vider Leidy Richard PA-C Unavailable [phone] Encounter Details Date Type Department Care Team (Late st Contact Info) Description 11/17/2024 MyC Medical Advice [facility] [id number] [place] [address] [phone] Jeana Gonzalez Social History Tobacco Use Types Packs/Day Years [...] re latives? Once a week 12/04/2023 Attends Cheondoism Services Not on file 12/03 Active Member of Clubs or Organizations Not on f ile 12/04/2023 Attends Club or Organization Meetings Not on lincoln e 12/04/2023 Marital Status Not on file 12/04/2023 PHQ-2 Answer Date Recorded PHQ-2 Score 6 04/01/2024 [facility] Occupat ional [facility] - Occupational Stress [...] in an abandoned building, in an overnight retirement, or couch-surfing.) Yes 12/04/2023 Are you worried [...] st Contact Info) Description 03/14/2025 1:30 PM JUVENILE JUSTICE SPECIALIST Office [address] [place] [phone] 03/15/2025 8:30 AM JUVENILE JUSTICE SPECIALIST [address]ation [address] [phone] 07/20/2025 9:00 AM CDT Office [place] [address] [place] [phone] Leidy Richard PA-C [address] [place] [id number] documented as of this encounter Visit Diagnoses Not on filedocumented in this encounter Additional Health Concerns Assessment Noted Time PHQ-9 Depression Total Score: 20 025 10:01 AM JUVENILE JUSTICE SPECIALIST documented as of this encounter Care Teams Tour Escort Relationship Specialty Start Date End Date Bernie Florez PA-C [address] [place] [address] PCP - General Family Medicine 08/11/24 Evan Navarro MD [address] [facility] [place] [address] Assigned Musculoskeletal Provider 01/25/22 01/18/25 Bernie Florez PA-C [address] [place] [address] Assigned PCP 07/05/22 Marisol Palma APRN CYBER ANALYST [address] [place] [address] Assigned Neuroscience Provider 12/21/23 Leidy Richard PA-C [address] [facility] [address] [place] [address] Assigned Sleep Provider 12/20/24 documented as of this encounter
--- OUTSIDE RECORDS SUMMARY | 2025-02-25 15:48 | XMS_ITS | Clinical Summary ---
Author Organization [facility] Address [address] [place] [address] Care Team Providers Care Power Lineman Technician Name Role Phone Jalen, Primary Care Provider Unavailabl e Clinic, Unknown Unavailable Unavailable Allergies Active Allergy Reactions Criticality Noted Date Comments Cefprozil Rash Low 06/27/2018 Medications amoxicillin-pot clavulanate (AUGMENTIN) 875-125 mg oral tablet 0 11/21/2018 Acti ve Active Problems No known active problems Social History Tobacco Use Types Packs/Day Years Used Date Smoking Tobacco: Every Day Cigarettes E - Cigarettes Smokeless Tobacco: Never Alcohol Use Standard Drinks/Week Comments Yes 4 (1 standard drink = 0.6 oz pur e alcohol) Sex and Gender Information Value Date Recorded Sex Assigned at Not on file Legal Sex Male 6:55 PM CDT Gender Identity Not on file Sexual Orientation Not on file Last Filed Vital Signs Vital Sign Reading Time Taken Comments Blood Pressure 127/76 11/23/2018 7:17 PM CDT Pulse 72 11/23/2018 7:17 PM CDT Temperature 36.6 C (97.8 F) 11/23/2018 7:17 PM CDT Respiratory Rate 16 11/23/2018 7:17 PM CDT Oxygen Saturation 99% 11/23/2018 7:17 PM CDT Inhaled Oxygen Concentration - - Weight 83.9 kg (185 lb) 11/23/2018 7:17 PM CDT Height 177.8 cm (5' 10) 11/23/2018 7:17 PM CDT Body Mass Index 26.54 11/23/2018 7:17 PM CDT Plan of Treatment Health Maintenance Due Date Last Done Comments Hepatitis C Screening 1998 Anxiety Screening (KATI-2) 1999 Depression Assessment (PHQ-2) 1999 Adult Tetanus Booster 11/26/2020 11/26/2010 COVID-19 Vaccine (1 - 2024-2 6 season) 2024 Influenza Vaccine (#1) 2024 6, 03/09/2015, 11/26/2010 RSV Vaccines (1 - 1-dose 75+ series) 2073 HPV Vaccine Completed 04/19/2012, 11/26/2010 Meningococcal B Vaccine Aged Out No l onger eligible based on patient's age to complete this topic Pneumococcal Vaccine Aged Out No long er eligible based on patient's age to complete this topic Insurance [place] [address] [address] [address] COMMERCIAL Care Teams Power Lineman Technician Relationship Specialty Start Date End Date None, PCP - General 11/23/18 Clinic, Unknown [place] PCP - Primary Care Clinic 11/23/18
--- OUTSIDE RECORDS SUMMARY | 2025-02-25 15:48 | XMS_ITS | Encounter Summary ---
Author Organization [place] Address [address] [facility] [address] Care Team Providers Care Chassis Mechanic Name Role Phone Evan Navarro MD Unavailable [phone] Bernie Florez PA-C Unavailable Marisol Palma APRN, CNP Unavailable Bernie Florez PA-C Primary Care Pro vider Leidy Richard PA-C Unavailable [phone] Encounter Details Date Type Department Care Team (Latest Contact Info) Description 01/11/2025 Travel Social History Tobacco Use Types Packs/Day Years [...] re latives? Once a week 12/04/2023 Attends Adventism Services Not on file 12/03 Active Member of Clubs or Organizations Not on f ile 12/04/2023 Attends Club or Organization Meetings Not on lincoln e 12/04/2023 Marital Status Not on file 12/04/2023 PHQ-2 Answer Date Recorded PHQ-2 Score 6 04/01/[address] [facility] - Occupational Stress Questionnaire Answer Date Recorded [...] in an abandoned building, in an overnight long-term, or couch-surfing.) Yes 12/04/2023 Are you worried [...] st Contact Info) Description 03/14/2025 1:30 PM TURRET LATHE SET UP OPERATOR Office Visit [facility] [address] [place] [address] [place] [phone] 03/15/2025 8:30 AM TURRET LATHE SET UP OPERATOR Documentation Only [facility] [address] [place] [phone] 07/20/2025 9:00 AM CDT Office Visit [facility] [address] [place] [phone] Leidy Richard PA-C [address] [place] [phone] documented as of this encounter Visit Diagnoses Not on filedocumented in this encounter Additional Health Concerns Assessment Noted Time PHQ-9 Depression Total Score: 20 025 10:01 AM TURRET LATHE SET UP OPERATOR documented as of this encounter Care Teams Chassis Mechanic Relationship Specialty Start Date End Date Bernie Florez PA-C [address] [place] [address] PCP - General Family Medicine 08/11/24 Evan Navarro MD [address] [facility] [place] [place] [address] Assigned Musculoskeletal Provider 01/25/22 01/18/25 Bernie Florez PA-C [address] [place] [address] Assigned PCP 07/05/22 Marisol Palma APRN PUTTY PATCHER [address] [place] [address] Assigned Neuroscience Provider 12/21/23 Leidy Richard PA-C [address] [place] [address] [place] [address] Assigned Sleep Provider 12/20/24 documented as of this encounter
--- OUTSIDE RECORDS SUMMARY | 2025-02-25 15:48 | XMS_ITS | Clinical Summary ---
Author Organization [facility] Address [address] [facility] [place] [address] Care Team Providers Care Cloth Bleaching Range Tender Name Role Phone Bernie Florez PA-C Unavailable Marisol Palma APRN ART THERAPIST Unavailable Bernie Florez PA-C Primary Care Pro vider Leidy Richard PA-C Unavailable [phone] Allergies Active Allergy Reactions Criticality Noted Date Comments Amoxicillin Rash Low 06/27/2018 Cefprozil Rash,Anaphylaxis High 06/27/2018 PT STATES ALLERGY TO CEFZIL, GETS HIVES Penicillins Anaphylaxis,Hives High 05/23/2019 PT STATES ALLERGY TO PENICILLIN, HAD ONE ANAPHYLAXIS REACTION Buchtel Extract 12/26/2021 Medications amphetamine-dextr oamphetamine (ADDERALL) 20 MG tabletIndications :Attention deficit hyperactivity disorder (ADHD), predominantly inattentive type Take 1 tablet (20 mg) by mouth 2 times daily. 60 tablet 12/04/19 24 Active meloxicam (MOBIC) 7.5 MG tabletIndications :Muscle pain, myofascial,Chroni c left-sided thoracic back pain Take 1 tablet po daily. Can increase to 2 tablets po daily if limited benefit with 1 tab. Take with food and full glass of water 60 tablet 1 06/02/19 25 Active Additional Information Patient not taking.Reported on 02/02/2025 polyethylene glycol (GOLYTELY) 236 g suspensionIndicat ions:Altered bowel function 2 days prior at 5pm, mix and drink half of a jug of Golytely. Drink an 8 oz. glass of Golytely every 15 minutes until half of the jug is gone. Place remainder of Golytely in the refrigerator. 1 day prior at 5 pm, drink the 2nd half of a jug of Golytely bowel prep. 6 hours before your check-in time, drink an 8 oz. glass of Golytely every 15 minutes until half of the 2nd jug of Golytely is gone. Discard remainder of second jug. 8000 mL 09/28/19 25 Active Additional Information Patient not taking.Reported on 02/02/2025 bisacodyl (DULCOLAX) 5 MG EC tabletIndications :Altered bowel function 2 days prior to procedure, take 2 tablets at 4 pm. 1 day prior to procedure, take 2 tablets at 4 pm. For additional instructions refer to your colonoscopy prep instructions. 4 tablet 09/28/19 Active Additional Information Patient not taking.Reported on 02/02/2025 testosterone (ANDROGEL 1 % PUMP) 12.5 MG/ACT (1%) gelIndications:Lo w testosterone in male Place 4 Pump (50 mg of testosterone) onto the skin daily. Apply from dispenser to clean, dry, intact skin of the shoulders, upper arms, or abdomen. 75 g 3 10/12/19 25 Active testosterone (ANDROGEL 1.62 % PUMP) 20.25 MG/ACT (1.62%) gelIndications:Hy potestosteronemia in male Place 2 Pump (40.5 mg) onto the skin daily. Apply from dispenser to clean, dry, intact skin of the upper arms and shoulders. 75 g 3 01/17/20 25 Active amphetamine-dextr oamphetamine (ADDERALL) 20 MG tabletIndications :Attention deficit hyperactivity disorder (ADHD), predominantly inattentive type Take 1 tablet (20 mg) by mouth 2 times daily. 60 tablet 02/16/20 25 025 Active amphetamine-dextr oamphetamine (ADDERALL) 20 MG tabletIndications :Attention deficit hyperactivity disorder (ADHD), predominantly inattentive type Take 1 tablet (20 mg) by mouth 2 times daily. 60 tablet 03/17/20 25 026 Active amphetamine-dextr oamphetamine (ADDERALL) 20 MG tabletIndications :Attention deficit hyperactivity disorder (ADHD), predominantly inattentive type Take 1 tablet (20 mg) by mouth 2 times daily. 60 tablet 01/17/20 25 025 Active Problems Problem Noted Date Diagnosed Date Testosterone deficiency 02/02/2025 Lumbar radiculopathy 02/02/2025 PTSD (post-traumatic stress disorder) 12/08/2024 S/P arthroscopy of left shoulder 04/09/2023 Biceps tendinitis, left 11/26/2022 Left shoulder pain 01/27/2022 Attention deficit hyperactiv ity disorder (ADHD), predominantly inattentive type 12/26/2021 Encounters Date Type Department Care Team Description 02/02/2025 11:00 AM COSMETIC SALES CONSULTANT Office Visit [place] [address] [place] [phone] Bernie Florez PA-C Routine general medical examination at a health care facility (Primary Dx); Testosterone deficiency; Lumbar radiculopathy; CARDIOVASCULAR SCREENING; LDL GOAL LESS THAN 160; Hypotestosteronemia in male 02/02/2025 Results Follow-Up [place] [address] [place] [phone] Bernie Florez PA-C Subj: Message about your results 02/02/2025 Travel 01/16/2025 8:00 AM CDT Virtual Visit [place] [address] [phone] Bernie Florez PA-C Attention deficit hyperactivity disorder (ADHD), predominantly inattentive type (Primary Dx); Hypotestosteronemia in male 01/11/2025 9:30 AM CDT Lab [facility] [address] [place] [address] Hypotestosteronemia in male 01/11/2025 Travel 01/10/2025 Documentation Only [place] [address] [phone] Bernie Florez PA-C Hypotestosteronemia in male (Primary Dx) 12/08/2024 9:30 AM CDT Office Visit [address] [place] [phone] Leidy Richard PA-C Snoring (Primary Dx); Insomnia, unspecified type; PTSD (post-traumatic stress disorder); Obesity (BMI 30-39.9) 12/08/2024 Travel from Last 3 Months Immunizations Immunization Administration Dates Next Due COVID-19 12+ (Pfizer) 01/13/2023 DTAP (<7y) 06/22/2003 HIB (PRP-T) 09/25/1999, 9,1998,06/15 Hepatitis A (Vaqta/Havrix)(P eds 12m-18y) 04/18/2010,08/30/2009,06/22/2003,09/24 Hepatitis A/B (Twinrix) 01/30/2018 Hepatitis B, Peds (Engerix-B/Recombivax HB) 06/30/2017,04/24/2017,1998,06/15,1998 Historical DTP/aP 06/22/2003, 0,1998,08/13,1998 Hpv, Unspecified 04/19/2012,11/26/2010 Influenza (intradermal) 11/26/2010 Influenza Vaccine >6 months,quad, PF ,02/06/2022,03/07/2020,01/29,01/30/2018,11/12/2015 Influenza Vaccine, 6+MO IM (QUADRIVALENT W/PRESERVATIVES) 03/09/2015 Influenza, Split Virus, Triv alent, Pf (Fluzone\Fluarix) 02/02/2025,03/17/2024,12/04/2023,11/26 Influenza,INJ,MDCK,PF,Quad >6mo(Flucelvax) 02/28/2017 MMR (MMRII) 11/22/2019,06/22/2003,05/08/1999 Meningococcal ACWY (Menactra ) 04/24/2017,11/26/2010 Poliovirus, inactivated (IPV) 04/24/2017 ,06/22/2003,09/25/1999,08/13,1998 TDAP (Adacel,Boostrix) 04/24/2017 TDAP Vaccine (Boostrix) 11/26/2010 Typhoid IM 11/22/2019 Varicella (Varivax) 05/08/1999 Family History Medical History Relation Comments Cerebrovascular Disease Father Mental Illness Father Other Cancer Father Esophageal Breast Cancer Maternal Grandmother Diabetes Maternal Grandmother Anxiety Disorder Mother Asthma Mother Depression Mother Mental Illness Mother Relation Status Comments Father Alive Maternal Grandmother Alive Mother Alive Social History Tobacco Use Types Packs/Day Years Used Date Smoking Tobacco: Former Cigarettes Smokeless Tobacco: Current Tobacco Cessation:Ready to Q uit: Not Asked; Counseling Given: Not Answered Comments:pouches Alcohol Use Standard Drinks/Week Comments Yes 0 (1 standard drink = 0.6 oz pur e alcohol) PHQ-2 Answer Date Recorded PHQ-2 Score 6 04/01/2024 [facility] - Occupational Stress [...] in an overnight half-way, or couch-surfing.) Yes 02/02/2025 Are you worried [...] Orientation Straight 01/27/2022 6: 52 AM CDT Last Filed Vital Signs Vital Sign Reading Time Taken Comments Blood Pressure 126/72 02/02/2025 10:48 AM COSMETIC SALES CONSULTANT Pulse 94 02/02/2025 10:48 AM COSMETIC SALES CONSULTANT Temperature 36.3 C (97.4 F) 02/02/2025 10:48 AM COSMETIC SALES CONSULTANT Respiratory Rate 16 02/02/2025 10:48 AM COSMETIC SALES CONSULTANT Oxygen Saturation 98% 02/02/2025 10:48 AM COSMETIC SALES CONSULTANT Inhaled Oxygen Concentration - - Weight 110.2 kg (243 lb) 02/02/2025 10:48 AM COSMETIC SALES CONSULTANT Height 172.7 cm (5' 8) 02/02/2025 10:48 AM COSMETIC SALES CONSULTANT Body Mass Index 36.95 02/02/2025 10:48 AM COSMETIC SALES CONSULTANT Plan of Treatment Upcoming Encounters Date Type Department Care Team (Late st Contact Info) Description 03/14/2025 1:30 PM COSMETIC SALES CONSULTANT Office Visit [facility] [address] [phone] 03/15/2025 8:30 AM COSMETIC SALES CONSULTANT Documentation Only [facility] [address] [facility] [address] [place] [phone] 07/20/2025 9:00 AM CDT Office Visit [facility] [address] [facility] [address] [place] [phone] Leidy Richard PA-C [address] [facility] [address] [place], [place] [phone] Health Maintenance Due Date Last Done Comments COVID-19 VACCINE ( season) 2024 01/13/2023, 05/09/2020, 04/11/2020 ANNUAL REVIEW OF HM ORDERS 08/11/202508/11, 12/04/2023, 03/07/2022 YEARLY PREVENTIVE VISIT 02/02/2026 02/03/20, 12/04/2023, 11/14/2022 DTAP/TDAP/TD VACCINE (8 - Td or Tdap) 04/24/2027 04/24/2017, 11/26/2010, 06/22/2003, Additional history exists ADVANCE CARE PLANNING 02/02/2030 02/02/2025 , 12/04/2023, 01/13/2023 ZOSTER VACCINE (1 of 2) 2048 HPV VACCINE Completed 04/19/2012, 11/26/2010 HEPATITIS C SCREENING Completed 11/05/2016 HIV SCREENING Completed 11/05/2016 MENINGITIS VACCINE Aged Out 04/24/2017, 11/26/2010 No longer eligible based on patient's age to complete this topic HEPATITIS B VACCINE Completed 01/30/2018, 06/30/2017, 04/24/2017, Additional history exists PHQ-2 (once per calendar year) Completed 04/01/2024, 04/01/2024, 04/30/2023, Additional history exists INFLUENZA VACCINE Completed 02/02/2025, , 12/04/2023, Additional history exists PNEUMOCOCCAL VACCINE: PEDIATRICS (0 to 5 YEARS) AND AT-RISK PATIENTS (6 to 49 YEARS) Aged Out No longer eligible based on patient's age to complete this topic Medical Devices Implanted Type Area Set Up Mechanic [employer] Machine Device Identifier Shelf Expiration Date Model / Serial / Lot Imp Richwood Suture Q-Fix 2.8mm [id number] - [id number] Implanted:Qt y: 1 on 01/29/2023 by Evan Navarro MD at [facility] Metallic Hardware/An chor Left: Shoulder [employer] [id number] 08/21/2025 [id number] Procedures Procedure Name Priority Date/Time Associated Diagnosis Comments CBC WITH PLATELETS & DIFFERENTIAL Routine 02/02/2025 11:22 AM COSMETIC SALES CONSULTANT Routine general medical examination at a [facility] facility EXTRA RED TOP TUBE (LAB USE ONLY) Routine 02/02/2025 11:22 AM COSMETIC SALES CONSULTANT Hypotestosteronemia in male PROSTATE SPECIFIC ANTIGEN SCREEN Add-On 02/02/2025 11:22 AM COSMETIC SALES CONSULTANT Routine general medical examination at a [facility] facility Testosterone deficiency CBC WITH PLATELETS AND DIFFERENTIAL Routine 02/02/2025 11:22 AM COSMETIC SALES CONSULTANT Routine general medical examination at a [facility] facility COMPREHENSIVE METABOLIC PANEL Routine 02/02/2025 11:22 AM COSMETIC SALES CONSULTANT Routine general medical examination at a [facility] facility CARDIOVASCULAR SCREENING; LDL GOAL LESS THAN 160 LIPID REFLEX TO DIRECT LDL PANEL Routine 02/02/2025 11:22 AM COSMETIC SALES CONSULTANT Routine general medical examination at a [facility] facility CARDIOVASCULAR SCREENING; LDL GOAL LESS THAN 160 TSH WITH FREE T4 REFLEX Routine 02/02/2025 11:22 AM COSMETIC SALES CONSULTANT Routine general medical examination at a [facility] facility TESTOSTERONE FREE AND TOTAL Routine 01/11/2025 9:42 AM CDT Hypotestosteronemia in male TESTOSTERONE FREE AND TOTAL Routine 01/11/2025 9:42 AM CDT Hypotestosteronemia in male SEX HORMONE BINDING GLOBULIN Routine 01/11/2025 9:42 AM CDT Hypotestosteronemia in male HIV ANTIGEN ANTIBODY COMBO Routine 11/05/2016 12:31 PM CDT HEPATITIS C ANTIBODY Routine 11/05/2016 12:31 PM CDT from Last 3 Months or Most Recently Relevant to Health Maintenance Results * CBC with platelets and differential (02/02/2025 11:22 AM COSMETIC SALES CONSULTANT) Pathologist [facility] WBC Count 5.87 4.00 - 11.00 10e3/uL 02/02/2025 11:24 AM COSMETIC SALES CONSULTANT [facility] RBC Count 5.01 4.40 - 5.90 10e6/uL 02/02/2025 11:24 AM COSMETIC SALES CONSULTANT [facility] Hemoglobin 14.3 13.3 - 17.7 g/dL 02/02/2025 11:24 AM COSMETIC SALES CONSULTANT [facility] Hematocrit 42.8 40.0 - 53.0 % 02/02/2025 11:24 AM COSMETIC SALES CONSULTANT [facility] MCV 85.4 78.0 - 100.0 fL 02/02/2025 11:24 AM COSMETIC SALES CONSULTANT [facility] MCH 28.5 26.5 - 33.0 pg 02/02/2025 11:24 AM COSMETIC SALES CONSULTANT [facility] MCHC 33.4 31.5 - 36.5 g/dL 02/02/2025 11:24 AM COSMETIC SALES CONSULTANT [facility] RDW 12.7 10.0 - 15.0 % 02/02/2025 11:24 AM COSMETIC SALES CONSULTANT [facility] Platelet Count 246 150 - 450 10e3/uL 02/02/2025 11:24 AM COSMETIC SALES CONSULTANT [facility] % Neutrophils 51.3 % 02/02/2025 11:24 AM COSMETIC SALES CONSULTANT [facility] % Lymphocytes 29.5 % 02/02/2025 11:24 AM COSMETIC SALES CONSULTANT [facility] % Monocytes 9.4 % 02/02/2025 11:24 AM COSMETIC SALES CONSULTANT [facility] % Eosinophils 8.5 % 02/02/2025 11:24 AM COSMETIC SALES CONSULTANT [facility] % Basophils 1.0 % 02/02/2025 11:24 AM COSMETIC SALES CONSULTANT [facility] % Immature Granulocytes 0.3 % 02/02/2025 11:24 AM COSMETIC SALES CONSULTANT [facility] Absolute Neutrophils 3.01 1.60 - 8.30 10e3/uL 02/02/2025 11:24 AM COSMETIC SALES CONSULTANT [facility] Absolute Lymphocytes 1.73 0.80 - 5.30 10e3/uL 02/02/2025 11:24 AM COSMETIC SALES CONSULTANT LABORATORY Absolute Monocytes 0.55 0.00 - 1.30 10e3/uL 02/02/2025 11:24 AM COSMETIC SALES CONSULTANT LABORATORY Absolute Eosinophils 0.50 0.00 - 0.70 10e3/uL 02/02/2025 11:24 AM COSMETIC SALES CONSULTANT LABORATORY Absolute Basophils 0.06 0.00 - 0.20 10e3/uL 02/02/2025 11:24 AM COSMETIC SALES CONSULTANT LABORATORY Absolute Immature Granulocytes <0.04 <=0.40 10e3/uL 02/02/2025 11:24 AM COSMETIC SALES CONSULTANT LABORATORY Blood BLOOD SPECIMEN / Unknown Venipuncture / Unknown 02/02/2025 11:22 AM COSMETIC SALES CONSULTANT 02/02/2025 11:22 AM COSMETIC SALES CONSULTANT Bernie Florez PA-C LAB - BLOOD ORDER MIRNA Final Result [facility] [id number] Lab (no room number, 1st floor of clinic) [place] [address], [place] * Extra Red Top Tube (LAB USE ONLY) (02/02/2025 11:22 AM COSMETIC SALES CONSULTANT) Pathologist [facility] Hold Specimen [facility] 02/02/2025 2:06 PM COSMETIC SALES CONSULTANT LABORATORY Blood BLOOD SPECIMEN / Unknown Venipuncture / Unknown 02/02/2025 11:22 AM COSMETIC SALES CONSULTANT 02/02/2025 12:49 PM COSMETIC SALES CONSULTANT Bernie Florez PA-C LAB - BLOOD ORDER MIRNA Final Result LABORATORY [facility] [employer] Lab (no room number, 1st floor of clinic) [place] [address], [place] * TSH with free T4 reflex (02/02/2025 11:22 AM COSMETIC SALES CONSULTANT) TSH 1.68 0.30 - 4.20 uIU/mL 02/02/2025 4:36 PM COSMETIC SALES CONSULTANT [facility] Blood BLOOD SPECIMEN / Unknown Venipuncture / Unknown 02/02/2025 11:22 AM COSMETIC SALES CONSULTANT 02/02/2025 11:22 AM COSMETIC SALES CONSULTANT Bernie Florez PA-C LAB - BLOOD ORDER MIRNA Final Result Performing Organization Address [facility] de Phone Number [facility] [address] [place] [address]. Room # [facility] [place] [address] * PSA, screen (02/02/2025 11:22 AM COSMETIC SALES CONSULTANT) [facility] Prostate Specific Antigen Screen 1.55 <=2.00 ng/mL 02/02/2025 4:36 PM COSMETIC SALES CONSULTANT [facility] Blood BLOOD SPECIMEN / Unknown Venipuncture / Unknown 02/02/2025 11:22 AM COSMETIC SALES CONSULTANT 02/02/2025 11:22 AM COSMETIC SALES CONSULTANT Narrative [facility] - 02/02/2025 4:36 PM COSMETIC SALES CONSULTANT This result is obtained using the [place] [...] is needed to diagnose prostate pathology. The [place] [employer] recommends annual examination with digital [...] ORDER MIRNA Final Result Performing Organization Address City/[facility]/ZIP Co de Phone Number [facility] [address] [facility]. Room # [address] [place] [phone] * (ABNORMAL) Lipid panel reflex to direct LDL Fasting (02/02/2025 11:22 AM COSMETIC SALES CONSULTANT) Cholesterol 158 <200 mg/dL 02/02/2025 4:36 PM COSMETIC SALES CONSULTANT [facility] Triglycerides 131 <150 mg/dL 02/02/2025 4:36 PM COSMETIC SALES CONSULTANT [facility] Direct Measure HDL 37(L) >=40 mg/dL 2024 4:36 PM COSMETIC SALES CONSULTANT [facility] LDL Cholesterol Calculated 95 <100 mg/dL 02/02/2025 4:36 PM COSMETIC SALES CONSULTANT [facility] Comment:LDL calculated using the Friedewald equation. Non HDL Cholesterol 121 <130 mg/dL 02/02/2025 4:36 PM COSMETIC SALES CONSULTANT [facility] Patient Fasting > 8hrs? No 02/02/2025 4:36 PM [facility] Blood BLOOD SPECIMEN / Unknown Venipuncture / Unknown 02/02/2025 11:22 AM COSMETIC SALES CONSULTANT 02/02/2025 11:22 AM COSMETIC SALES CONSULTANT Narrative [facility] - 02/02/2025 4:36 PM COSMETIC SALES CONSULTANT Cholesterol Desirable: < 200 mg/dL Borderline High: [...] 219 mg/dL Very High: >= 220 mg/dL us Bernie Florez PA-C LAB - BLOOD ORDER MIRNA Final Result [facility] [address] [facility]. Room [address] [place] [address], [facility] * Comprehensive metabolic panel (BMP + Alb, Alk Phos, ALT, AST, Total. Bili, TP) (02/02/2025 11:22 AMCST) Sodium 143 135 - 145 mmol/L 02/02/2025 4:36 PM [facility] Potassium 4.5 3.4 - 5.3 mmol/L 02/02/2025 4:36 PM [facility] Carbon Dioxide (CO2) 26 22 - 29 mmol/L 02/02/2025 4:36 PM [facility] Anion Gap 10 7 - 15 mmol/L 02/02/2025 4:36 PM [facility] Urea Nitrogen 12.3 6.0 - 20.0 mg/dL 02/02/2025 4:36 PM [facility] Creatinine 0.96 0.67 - 1.17 mg/dL 02/02/2025 4:36 PM [facility] GFR Estimate >90 >60 mL/min/1.7 3m2 02/02/2025 4:36 PM [facility] Comment:eGFR calculated us2020 CKD-EPI equation. Calcium 9.5 8.8 - 10.4 mg/dL 02/02/2025 4:36 PM [facility] Chloride 107 98 - 107 mmol/L 02/02/2025 4:36 PM [facility] Glucose 90 70 - 99 mg/dL 02/02/2025 4:36 PM [facility] Alkaline Phosphatase 46 40 - 150 U/L 02/02/2025 4:36 PM [facility] AST 26 0 - 45 U/L 02/02/2025 4:36 PM [facility] ALT 52 0 - 70 U/L 02/02/2025 4:36 PM [facility] Protein Total 6.6 6.4 - 8.3 g/dL 02/02/2025 4:36 PM [facility] Albumin 4.4 3.5 - 5.2 g/dL 02/02/2025 4:36 PM [facility] Bilirubin Total 0.2 <=1.2 mg/dL 02/02/2025 4:36 PM [facility] Patient Fasting > 8hrs? No 02/02/2025 4:36 PM [facility] Blood BLOOD SPECIMEN / Unknown Venipuncture / Unknown 02/02/2025 11:22 AM COSMETIC SALES CONSULTANT 02/02/2025 11:22 AM COSMETIC SALES CONSULTANT Bernie Florez PA-C LAB - BLOOD ORDER MIRNA Final Result [facility] [address] [facility]. Room # [address] [place] [address] * Testosterone Free and Total (01/11/2025 9:42 [...] and its performance characteristics determined by the [facility], Special Chemistry Laboratory. It has not been cleared or approved by the FDA. The laboratory is regulated under CLIA as qualified to perform high-complexity testing. This test is used for clinical purposes. It should not be regarded as investigational or for research. Bernie Florez PA-C LAB - BLOOD ORDER MIRNA Final Result [facility] [address] [facility] [address], [address] [place] [address] * Sex Hormone Binding Globulin (01/11/2025 9:42 AM CDT) Sex Hormone Binding Globulin 13 11 - 80 nmol/L 01/11/2025 5:04 PM CDT [facility] Blood BLOOD SPECIMEN / Unknown Venipuncture / Unknown 01/11/2025 9:42 AM CDT 01/11/2025 9:42 AM CDT us Bernie Florez PA-C LAB - BLOOD ORDER MIRNA Final Result LABORATORY [facility] [address] [facility], [address] [place] [address], [facility] * HIV Antigen Antibody Combo (11/05/2016 12:31 PM CDT) HIV Antigen Antibody Combo Negative Negative 11/05/2016 8:54 PM CDT [facility] Blood specimen (specimen) 11/05/2016 12:31 PM CDT 11/05/2016 7:18 PM CDT Irina Rendon PA-C LAB - BLOOD ORDERABLES Final Result Performing Organization Address City/[facility]/ZIP Co de Phone Number [facility] [address] [address], [facility] [address] [place] [address] * Hepatitis C antibody (11/05/2016 12:31 PM CDT) Hepatitis C Antibody Negative Negative 11/06/2016 8:37 AM CDT [facility] Blood specimen (specimen) 11/05/2016 12:31 PM CDT 11/05/2016 7:18 PM CDT Irina Rendon PA-C LAB - BLOOD ORDERABLES Final Result [facility] [address] [address], [facility] [address] [address] from Last 3 Months or Most Recently Relevant to Health Maintenance Insurance [address] WITH [facility] [place] [address] [place] [address] WITH BS Care Teams Cloth Bleaching Range Tender Relationship Specialty Start Date End Date Bernie Florez PA-C [id number] [place] [address] PCP - General Family Medicine 08/11/24 Bernie Florez PA-C [address] [place] [address] Assigned PCP 07/05/22 Marisol Pal[place] APRN ART THERAPIST [address] [place] [address] Assigned Neuroscience Provider 12/21/23 Leidy Richard PA-C [address] [address] Assigned Sleep Provider 12/20/24
--- OUTSIDE RECORDS SUMMARY | 2025-02-25 15:48 | XMS_ITS | Encounter Summary ---
Author Organization [place] Address [address] [facility] [place] [address] Care Team Providers Care Financial Dealers Name Role Phone Bernie Florez PA-C Unavailable Marisol Palma APRN OBSTETRICS TEACHER Unavailable Bernie Florez PA-C Primary Care Pro vider Leidy Richard PA-C Unavailable [phone] Encounter Details Date Type Department Care Team (Late st Contact Info) Description 02/02/2025 Results Follow-Up [facility] [address] [place] [address] Bernie Florez PA-C [address] [place], [place] [phone] (Fax) Subj: Message about your results Social History Tobacco Use Types Packs/Day Years Used Date Smoking Tobacco: Former Cigarettes Smokeless Tobacco: Current Comments:pouches Alcohol Use Standard Drinks/Week Comments Yes 0 (1 standard drink = 0.6 oz pur e alcohol) PHQ-2 Answer Date Recorded PHQ-2 Score 6 04/01/2024 [facility] [place] of Occupat ional Health - Occupational Stress [...] in an abandoned building, in an overnight mcc, or couch-surfing.) Yes 02/02/2025 Are you worried [...] st Contact Info) Description 03/14/2025 1:30 PM MACHINE STONE POLISHER APPRENTICE Office Visit [facility] [place] [phone] 03/15/2025 8:30 AM MACHINE STONE POLISHER APPRENTICE Documentation Only [facility]ie [facility] [place] [phone] 07/20/2025 9:00 AM CDT Office Visit [facility] aCndie [facility] [place] [phone] Leidy Richard PA-C [address] [place] [address] [place] [phone] documented as of this encounter Visit Diagnoses Not on filedocumented in this encounter Additional Health Concerns Assessment Noted Time PHQ-9 Depression Total Score: 20 025 10:01 AM MACHINE STONE POLISHER APPRENTICE documented as of this encounter Care Teams Financial Dealers Relationship Specialty Start Date End Date Bernie Florez PA-C [address] [place] [address] PCP - General Family Medicine 08/11/24 Bernie Florez PA-C [address] [place] [address] Assigned PCP 07/05/22 Marisol Palma APRN OBSTETRICS TEACHER [address] [place], [place] [address] Assigned Neuroscience Provider 12/21/23 Leidy Richard PA-C [address] [place] [address] [place] [address] Assigned Sleep Provider 12/20/24 documented as of this encounter
--- OUTSIDE RECORDS SUMMARY | 2025-02-25 15:48 | XMS_ITS | Encounter Summary ---
Author Organization [place] Address [address] [facility] [place] [address] Care Team Providers Care Carpet Yarn Winder Operator Name Role Phone Bernie Florez PA-C Unavailable Marisol Palma APRN MACHINE REPAIR PERSON Unavailable Bernie Florez PA-C Primary Care Pro vider Leidy Richard PA-C Unavailable [phone] Encounter Details Date Type Department Care Team (Latest Contact Info) Description 02/02/2025 Travel Social History Tobacco Use Types Packs/Day Years Used Date Smoking Tobacco: Former Cigarettes Smokeless Tobacco: Current Comments:pouches Alcohol Use Standard Drinks/Week Comments Yes 0 (1 standard drink = 0.6 oz pur e alcohol) PHQ-2 Answer Date Recorded PHQ-2 Score 6 04/01/2024 [facility] [place] of Occupat ional Health - Occupational Stress [...] Date Recorded Do you have housing? (Padmini ernst is defined as stable permanent housing and does not include staying outside in a car, in a tent, in an abandoned building, in an overnight chcf, or couch-surfing.) Yes 02/02/2025 Are you worried [...] st Contact Info) Description 03/14/2025 1:30 PM RESERVOIR ENGINEER Office Visit [facility] [place] [address] [address] [place] [phone] 03/15/2025 8:30 AM RESERVOIR ENGINEER Documentation Only [facility] [address] [place] [phone] 07/20/2025 9:00 AM CDT Office Visit [facility] [address] [facility] 103 [place] [phone] Leidy Richard PA-C [address] [facility] 103 [place] [address] documented as of this encounter Visit Diagnoses Not on filedocumented in this encounter Additional Health Concerns Assessment Noted Time PHQ-9 Depression Total Score: 20 025 10:01 AM RESERVOIR ENGINEER documented as of this encounter Care Teams Carpet Yarn Winder Operator Relationship Specialty Start Date End Date Bernie Florez PA-C [address] [place] [address] PCP - General Family Medicine 08/11/24 Bernie Florez PA-C [address] [place] [address] Assigned PCP 07/05/22 Marisol Palma APRN CNP 500 [place] [address] Assigned Neuroscience Provider 12/21/23 Leidy Richard PA-C [address] [place] [address] Assigned Sleep Provider 12/20/24 documented as of this encounter
--- OUTSIDE RECORDS SUMMARY | 2025-02-25 15:49 | XMS_ITS | Encounter Summary ---
Author Organization [place] Address [address] [facility] [place] [address] Care Team Providers Care Grain Mill Products Inspector Name Role Phone No Ref-Primary, Physician Primary Care Provider Bernie FlorezC Unavailable Evan Navarro MD Unavailable Donna SimentalC Unavailable Bernie Florez PA-C Unavailable Marisol Palma APRN, CNP Unavailable Bernie Florez PA-C Primary Care Pro vider Leidy Richard-C Unavailable + [phone] Encounter Details Date Type Department Care Team (Late st Contact Info) Description 01/03/2022 [facility] Medical Advice [facility] [address] [place] [phone] Bernie Florez PA-C [address] [place], [place] [phone] Social History Tobacco Use Types Packs/Day Years Used Date Smoking Tobacco: Every Day Smokeless Tobacco: Never Alcohol Use Standard Drinks/Week Comments Yes 0 (1 standard drink = 0.6 oz pur e alcohol) PHQ-2 Answer Date Recorded PHQ-2 Score 2 12/26/2021 Sex and Gender Information Value Date Recorded Sex Assigned at Male 01/27/2022 6:52 AM CDT Legal Sex Male 1:00 PM CDT Gender Identity Male 01/27/2022 6:52 AM CDT Sexual Orientation Straight 01/27/2022 6: 52 AM CDT COVID-19 Exposure Response Date Recorded In the last 10 days, have yo u been in contact with someone who was confirmed or suspected to have Coronavirus/COVID-19? No / Unsure 12/31/2021 10:38 AM CDT documented as of this encounter Miscellaneous Notes * Telephone Encounter - Jeana Gonzalez - 01/13/2022 12:41 PM CDT Records received, placed in provider basket. ALESSANDRO Mcdaniels documented in this encounter Plan of Treatment Upcoming Encounters Date Type Department Care Team (Late st Contact Info) Description 03/14/2025 1:30 PM FISH PITCHER Office Visit [place] [address] [place] [phone] 03/15/2025 8:30 AM FISH PITCHER Documentation Only [place] [address] [place] [phone] 07/20/2025 9:00 AM CDT Office Visit [address] [place] [phone] Leidy Richard PA-C [address] [place] [address] [place] [address] documented as of this encounter Visit Diagnoses Not on filedocumented in this encounter Care Teams Grain Mill Products Inspector Relationship Specialty Start Date End Date No Ref-Primary, Physician PCP - General 11/25/21 08/10/24 Bernie Florez PA-C [address] [place] [address] PCP - General Family Medicine 08/11/24 Bernie Florez PA-C [address] [place] [address] Assigned PCP 11/28/21 03/14/22 Evan Navarro MD [address] [facility] [address] Assigned Musculoskeletal Provider 01/25/22 01/18/25 Donna Simental PA-C [address] [facility] [place] [address] Assigned PCP 03/15/22 07/04/22 Bernie Florez PA-C [address] [place] [address] Assigned PCP 07/05/22 Marisol Palma APRN EXTENDER 500 [place] [address] Assigned Neuroscience Provider 12/21/23 Leidy Richard PA-C [address] [facility] [place] [address] Assigned Sleep Provider 12/20/24 documented as of this encounter
--- OUTSIDE RECORDS SUMMARY | 2025-02-25 15:49 | XMS_ITS | Encounter Summary ---
Author Organization [place] Address [address] [facility] [place] [address] Care Team Providers Care Auger Supervisor Name Role Phone Evan Navarro MD Unavailable [phone] Bernie Florez PA-C Unavailable Marisol Palma APRN, CNP Unavailable Bernie Florez PA-C Primary Care Pro vider Leidy Richard PA-C Unavailable [phone] Encounter Details Date Type Department Care Team (Late st Contact Info) Description 08/15/2024 [facility] Medical Advice [facility] [address] 4th [place] [address] Veronique Meadows Social History Tobacco Use Types Packs/Day Years [...] re latives? Once a week 12/04/2023 Attends Congregational Services Not on file 12/03 Active Member of Clubs or Organizations Not on f ile 12/04/2023 Attends Club or Organization Meetings Not on lincoln e 12/04/2023 Marital Status Not on file 12/04/2023 PHQ-2 Answer Date Recorded PHQ-2 Score 6 04/01/2024 [place] [place] of Occupat ional Health - Occupational Stress [...] in an abandoned building, in an overnight residential, or couch-surfing.) Yes 12/04/2023 Are you worried [...] st Contact Info) Description 03/14/2025 1:30 PM GREIGE MENDER [place] [address] [place] [phone] 03/15/2025 8:30 AM GREIGE MENDER Documentation [place] [address] [place] [phone] 07/20/2025 9:00 AM CDT Office [place] [address] [place] [phone] Leidy Richard PA-C [address] [address] documented as of this encounter Visit Diagnoses Not on filedocumented in this encounter Additional Health Concerns Assessment Noted Time PHQ-9 Depression Total Score: 20 025 10:01 AM GREIGE MENDER documented as of this encounter Care Teams Auger Supervisor Relationship Specialty Start Date End Date Bernie Florez PA-C [address] [place] [address] PCP - General Family Medicine 08/11/24 Evan Navarro MD [address] [facility] [place] [address] Assigned Musculoskeletal Provider 01/25/22 01/18/25 Bernie Florez PA-C [address] [place] [address] Assigned PCP 07/05/22 Marisol Palma APRN CUSTOMER EXPERIENCE ANALYST 500 [place] [address] Assigned Neuroscience Provider 12/21/23 Leidy Richard PA-C [address] [address] Assigned Sleep Provider 12/20/24 documented as of this encounter
--- OUTSIDE RECORDS SUMMARY | 2025-02-25 15:49 | XMS_ITS | Encounter Summary ---
Author Organization [place] Address [address] [facility] [place] [address] Care Team Providers Care Cream Ripener Name Role Phone Evan Navarro MD Unavailable [phone] Bernie Florez PA-C Unavailable Marisol Palma APRN, CNP Unavailable Bernie Florez PA-C Primary Care Pro vider Leidy Richard PA-C Unavailable [phone] Encounter Details Date Type Department Care Team (Late st Contact Info) Description 09/27/2024 [facility] Medical Advice [facility] [address] 4[address] [place] [address] Jeana Jiang RN Social History Tobacco Use Types Packs/Day Years [...] re latives? Once a week 12/04/2023 Attends Orthodoxy Services Not on file 12/03 Active Member of Clubs or Organizations Not on f ile 12/04/2023 Attends Club or Organization Meetings Not on lincoln e 12/04/2023 Marital Status Not on file 12/04/2023 PHQ-2 Answer Date Recorded PHQ-2 Score 6 04/01/2024 [facility] of Occupat ional Health - Occupational [...] in an abandoned building, in an overnight fdc, or couch-surfing.) Yes 12/04/2023 Are you worried [...] st Contact Info) Description 03/14/2025 1:30 PM DUCK BILL OPERATOR Office Visit [place] [address] [place] [phone] 03/15/2025 8:30 AM DUCK BILL OPERATOR Documentation Only [place] [address] [place] [phone] 07/20/2025 9:00 AM CDT Office [place] [address] [place] [phone] Leidy Richard PA-C [address] [place] [address] documented as of this encounter Visit Diagnoses Not on filedocumented in this encounter Additional Health Concerns Assessment Noted Time PHQ-9 Depression Total Score: 20 025 10:01 AM DUCK BILL OPERATOR documented as of this encounter Care Teams Cream Ripener Relationship Specialty Start Date End Date Bernie Florez PA-C [address] [place] [address] PCP - General Family Medicine 08/11/24 Evan Navarro MD 6341 [facility] [place] [address] Assigned Musculoskeletal Provider 01/25/22 01/18/25 Bernie Florez PA-C [address] [place] [address] Assigned PCP 07/05/22 Marisol Palma APRN MEDICAL CHIEF TECHNICIAN 500 [place], [place] [address] Assigned Neuroscience Provider 12/21/23 Leidy Richard PA-C [address] [address] Assigned Sleep Provider 12/20/24 documented as of this encounter
--- OUTSIDE RECORDS SUMMARY | 2025-02-25 15:49 | XMS_ITS | Clinical Summary ---
Author Organization [facility] Address [address] [place] [address] Care Team Providers Care Heavy Threader Name Role Phone Pcp, No Primary Care Provider Unavailabl e Allergies Active Allergy Reactions Criticality Noted Date Comments Amoxicillin Rash 06/27/2018 Cefprozil Anaphylaxis High 05/20/2019 Penicillins Hives 05/23/2019 [place] Extract *Unknown 12/26/2021 Medications dextroamphetami ne-amphetamine (ADDERALL XR) 20 mg Extended-Releas e capsule Take 20 mg by mouth 2 times daily at 7 AM and Noon. 10/29/2022 Active meloxicam 7.5 mg tablet Take 1 tablet po daily. Can increase to 2 tablets po daily if limited benefit with 1 tab. Take with food and full glass of water 06/01/2024 Active dextroamphetami ne-amphetamine 20 mg tablet Oral for 30 Days 12/04/2023 Active Active Problems No known active problems Encounters Date Type Department Care Team Description 02/03/2025 1:05 PM CALCINER OPERATOR HELPER Office Visit [facility] [address] [address] Alberto Galdamez MD URI 02/03/2025 Travel 12/13/2024 10:20 AM CDT Office Visit [facility] [address] [address] Angelica Mccord NP Ear Problem 12/13/2024 Travel from Last 3 Months Family History Relation Name Status Comments Father Alive Mother Alive Social History Tobacco Use Types Packs/Day Years Used Date Smoking Tobacco: Former Cigarettes Q uit: 03/30/2018 Passive Smoke Exposure: Past Smokeless Tobacco: Current Snuff Tobacco Cessation:Ready to Q uit: Not Asked; Counseling Given: Not Answered Comments:Snooze pouches Alcohol Use Standard Drinks/Week Comments Not Currently 1 (1 standard drink = 0.6 oz pur e alcohol) Social Connections Answer Date Recorded Do you often feel lonely or isolated from those around you? 4 07/21/2024 Alcohol Use Answer Date Recorded How often do you have a drink containing alcohol ? 0 02/03/2025 How many drinks containing a lcohol do you have on a typical day when you are drinking? 0 02/03/2025 How often do you have five or more drinks on one occasion? 0 02/03/2025 Financial Resource Strain Answer Date R ecorded Difficulty of Paying Living Expenses 3 07/21/2024 Difficulty of Paying Living Expenses Not on file 07/21/2024 Food Insecurity Answer Date Recorded Do you worry your food will run out before you are able to buy more? 1 07/21/2024 Transportation Needs Answer Date Record ed Does lack of transportation keep you from medica l appointments? 1 07/21/2024 Does lack of transportation keep you from work, meetings or getting things that you need? 1 07/21/2024 Housing Stability Answer Date Recorded What is your housing situation today? 1 07/21/2024 Interpersonal Safety Answer Date Record ed Are you being hit, kicked, p ushed or yelled at (see row info)? No 07/23/2024 Interpersonal Safety Abuse 12 - 18 Not on file 07/23/2024 Interpersonal Safety Ambulatory Vulnerability No t on file 07/23/2024 Utilities Answer Date Recorded Do you have trouble paying f or utilities (for example, heat, electricity, water, phone)? 1 07/21/2024 Sex and Gender Information Value Date Recorded Sex Assigned at Not on file Legal Sex Male 6:15 AM CALCINER OPERATOR HELPER Gender Identity Not on file Sexual Orientation Not on file Obstetrics History Last Filed Vital Signs Vital Sign Reading Time Taken Comments Blood Pressure 128/78 02/03/2025 1:09 PM CALCINER OPERATOR HELPER MAP 96 Pulse 77 02/03/2025 1:09 PM CALCINER OPERATOR HELPER Temperature 36.4 C (97.6 F) 02/03/2025 1:09 PM CALCINER OPERATOR HELPER Respiratory Rate 20 02/03/2025 1:09 PM CALCINER OPERATOR HELPER Oxygen Saturation 97% 02/03/2025 1:09 PM CALCINER OPERATOR HELPER Inhaled Oxygen Concentration - - Weight 117.3 kg (258 lb 8 oz) 07/23/2024 11:21 A M CDT Height 175.3 cm (5' 9) 07/23/2024 11:21 AM CDT Body Mass Index 38.17 07/23/2024 11:21 AM CDT Plan of Treatment Health Maintenance Due Date Last Done Comments Tetanus booster 2009 Depression screening for age 12+ 2010 HIV for age 15-65 2013 HPV series for age 9-45 (1 - Male 3-dose series) 2013 BMI (ht and wt on same day) for age 18+ 2016 Hepatitis C screening for ag e 18-79 2016 Hepatitis B series for 19+ ( 1 of 3 - 19+ 3-dose series) 2017 Influenza Vaccine (#1) 2024 RSV vaccine for adults or (1 - 1-dose 75+ series) 2073 Pneumococcal series for age 6-49 Aged Out No longer eligible based on patient's age to complete this topic Procedures Procedure Name Priority Date/Time Associated Diagnosis Comments COVID-19 MOLECULAR Routine 02/03/2025 1: 34 PM CALCINER OPERATOR HELPER Acute viral syndrome from Last 3 Months Results * COVID-19 MOLECULAR (02/03/2025 1:34 PM CALCINER OPERATOR HELPER) COVID 19 [facility] MOLECULAR Negative Negative 02/03/2025 11:41 PM CALCINER OPERATOR HELPER [facility] N[facility]AL LABORAT[facility] TESTING LABORATORY [facility] 02/03/2025 11:41 PM CALCINER OPERATOR HELPER [facility]- NTRAL LABORATORY Comment:Specimen submitted t o [facility] for testing. Other SPECIMEN FROM NASAL FOSSAE / Unknown Non-Blood / Unknown 02/03/2025 1:34 PM CALCINER OPERATOR HELPER 02/03/2025 1:34 PM CALCINER OPERATOR HELPER Narrative [facility]AL LABORAT[facility] - 02/03/2025 11:41 PM CALCINER OPERATOR HELPER All PCR tests are subject to false negative result due to variability in viral load and collection technique. A negative result does not rule out a SARS-CoV-2 infection. Clinical correlation required. Alberto Galdamez MD MICROBIOLOGY Final Result [facility] [address] [place] [address], [place] from Last 3 Months Insurance [facility] Advance Directives * Full Code (Latest Code Status on File) Date Activated Date Inactivated Comments 05/23/2019 8:36 AM 05/24/2019 2:28 AM Question Answer Comments Code Status Discussion: Not Discussed Care Teams Heavy Threader Relationship Specialty Start Date End Date Pcp, No . PCP - General 07/21/24"
--- OUTSIDE RECORDS SUMMARY | 2025-02-25 15:49 | XMS_ITS | Encounter Summary ---
Author Organization [place] Address [address] [facility] [address] Care Team Providers Care Training Director Name Role Phone No Ref-Primary, Physician Primary Care Provider Evan Navarro MD Unavailable [phone] Donna Simental PA-C Unavailable [phone] Bernie Florez PA-C Unavailable Marisol Palma APRN GRILL ATTENDANT Unavailable Bernie Florez PA-C Primary Care Pro vider Leidy Richard PA-C Unavailable [phone] Encounter Details Date Type Department Care Team (Late st Contact Info) Description 04/28/2022 [facility] Medical Advice [facility] [address] [place] [address] Bernie Florez PA-C [address] [place] [address] Social History Tobacco Use Types Packs/Day Years Used Date Smoking Tobacco: Every Day Cigarettes Smokeless Tobacco: Never Alcohol Use Standard [...] encounter Miscellaneous Notes * Telephone Encounter - Donna Card - 04/29/2022 3:51 PM CSTSummary: sports team manager Lvm to call clinic directly R INSPECTION MECHANIC * Telephone Encounter - Bernie Florez PA-C - 04/29/2022 2:03 PM CST Please call patient and see if he can get scheduled in a virtual slot this (I still have several openings). Or if that doesn't work - any virtual slot in next week or so, whatever works for him Thanks - Bernie R INSPECTION MECHANIC documented in this encounter Plan of Treatment Upcoming Encounters Date Type Department Care Team (Late st Contact Info) Description 03/14/2025 1:30 PM MOTOR INSPECTION MECHANIC Office Visit [facility] [place] [address] [place] [phone] 03/15/2025 8:30 AM MOTOR INSPECTION MECHANIC Documentation Only [address] [phone] 07/20/2025 9:00 AM CDT Office Visit [place] [address] [place] [phone] Leidy Richard PA-C [address] [place] [address] [place] [address] documented as of this encounter Visit Diagnoses Not on filedocumented in this encounter Care Teams Training Director Relationship Specialty Start Date End Date No Ref-Primary, Physician PCP - General 11/25/21 08/10/24 Bernie Florez PA-C [address] [place] [address] PCP - General Family Medicine 08/11/24 Evan Navarro MD [address] [place] [address] Assigned Musculoskeletal Provider 01/25/22 01/18/25 Donna Simental PA-C [address] [facility] [place] [address] Assigned PCP 03/15/22 07/04/22 Bernie Florez PA-C [address] [place] [address] Assigned PCP 07/05/22 Marisol Palma APRN GRILL ATTENDANT [address] [place], [place] [address] Assigned Neuroscience Provider 12/21/23 Leidy Richard PA-C 6[address] [facility] [place] [address] [place] [address] Assigned Sleep Provider 12/20/24 documented as of this encounter
--- OUTSIDE RECORDS SUMMARY | 2025-02-25 15:49 | XMS_ITS | Encounter Summary ---
Author Organization [place] Address [address] [facility] [place] [address] Care Team Providers Care Market Investigator Name Role Phone No Ref-Primary, Physician Primary Care Provider Bernie FlorezC Unavailable Evan Navarro MD Unavailable [phone] Donna SimentalC Unavailable Bernie Florez PA-C Unavailable Marisol Palma APRN, CNP Unavailable Bernie Florez PA-C Primary Care Pro vider Leidy Richard-C Unavailable + [phone] Encounter Details Date Type Department Care Team (Late st Contact Info) Description 03/14/2022 [facility] Medical Advice [facility] [address] [place] [phone] eBrnie Florez PA-C [address] [place], [place] [phone] Social History Tobacco Use Types Packs/Day Years [...] suspected to have Coronavirus/COVID-19? No / Unsure 03/17/2022 10:16 AM PROGRAM EVALUATION CONSULTANT documented as of this encounter Plan of Treatment Upcoming Encounters Date Type Department Care Team (Late st Contact Info) Description 03/14/2025 1:30 PM PROGRAM EVALUATION CONSULTANT Office [address] [place] [phone] 03/15/2025 8:30 AM PROGRAM EVALUATION CONSULTANT Documentation Only [address] [place] [phone] 07/20/2025 9:00 AM CDT Office Visit [place] [address] [place] [phone] Leidy Richard PA-C [address] [place] [address] documented as of this encounter Visit Diagnoses Not on filedocumented in this encounter Care Teams Market Investigator Relationship Specialty Start Date End Date No Ref-Primary, Physician PCP - General 11/25/21 08/10/24 Bernie Florez PA-C [address] [place] [address] PCP - General Family Medicine 08/11/24 Bernie Florez PA-C [address] [place] [address] Assigned PCP 11/28/21 03/14/22 Evan Navarro MD [address] [place] [address] Assigned Musculoskeletal Provider 01/25/22 01/18/25 Donna Simental PA-C [address] [facility] [facility] [address] [place] [address] Assigned PCP 03/15/22 07/04/22 Bernie Florez PA-C [address] [place] [id number] Assigned PCP 07/05/22 Marisol Palma APRN BRAKE LINING CURER [address] [place], [place] [address] Assigned Neuroscience Provider 12/21/23 Leidy Richard PA-C [address] [facility] [address] [facility] [place] [id number] Assigned Sleep Provider 12/20/24 documented as of this encounter
--- OUTSIDE RECORDS SUMMARY | 2025-02-25 15:49 | XMS_ITS | Encounter Summary ---
Author Organization [facility] Address [address] [facility] [place] [address] Care Team Providers Care Habilitation Assistant Name Role Phone No Ref-Primary, Physician Primary Care Provider Evan Navarro MD Unavailable [phone] Bernie Florez PA-C Unavailable Marisol Palma APRN SURVEY TECHNOLOGIST Unavailable Bernie Florez PA-C Primary Care Pro vider Leidy Richard PA-C Unavailable [phone] Encounter Details Date Type Department Care Team (Late st Contact Info) Description 08/06/2022 MyC Medical Advice [facility] [place] [address] [facility] [address] [place] [phone] Evan Navarro MD [address] [facility] [place] [id number] Social History Tobacco Use Types Packs/Day Years Used Date Smoking Tobacco: Every Day Cigarettes Smokeless Tobacco: Never Alcohol Use Standard Drinks/Week Comments Yes 0 (1 standard drink = 0.6 oz pur e alcohol) PHQ-2 Answer Date Recorded PHQ-2 Score 0 06/23/2022 Sex and Gender Information Value Date Recorded Sex Assigned at Male 01/27/2022 6:52 AM CDT Legal Sex Male 1:00 PM CDT Gender Identity Male 01/27/2022 6:52 AM CDT Sexual Orientation Straight 01/27/2022 6: 52 AM CDT COVID-19 Exposure Response Date Recorded In the last 10 days, have yenni becker been in contact with someone who was confirmed or suspected to have Coronavirus/COVID-19? No / Unsure 08/06/2022 9:26 AM CDT documented as of this encounter Plan of Treatment Upcoming Encounters Date Type Department Care Team (Late st Contact Info) Description 03/14/2025 1:30 PM SECURITY GUARDS DISPATCHER Office Visit [place] [address] [place] [phone] 03/15/2025 8:30 AM SECURITY GUARDS DISPATCHER Documentation Only [place] [address] [place] [phone] 07/20/2025 9:00 AM CDT [address] [phone] Leidy Richard PA-C [address] [place] [address] [place] [id number] documented as of this encounter Visit Diagnoses Not on filedocumented in this encounter Care Teams Habilitation Assistant Relationship Specialty Start Date End Date No Ref-Primary, Physician PCP - General 11/25/21 08/10/24 Bernie Florez PA-C [address] [place] [address] PCP - General Family Medicine 08/11/24 Evan Navarro MD [address] [facility] [place] [address] Assigned Musculoskeletal Provider 01/25/22 01/18/25 Bernie Florez PA-C [address] [place] [id number] Assigned PCP 07/05/22 Marisol Palma APRN SURVEY TECHNOLOGIST [address] [place] [address] Assigned Neuroscience Provider 12/21/23 Leidy Richard PA-C [address] [address] Assigned Sleep Provider 12/20/24 documented as of this encounter
--- OUTSIDE RECORDS SUMMARY | 2025-02-25 15:49 | XMS_ITS | Patient Health Record ---
Author Organization [facility] Address [address] [place] [address] [address] [place] [address] Care Team Providers Care Medical Office Receptionist Assistant Name Role Phone Yuniel Camejo Primary Care Provider Yesi Abbott Unavailable Unavailable Tony Roberts Unavailable [phone] Penny Nugent Unavailable [phone] Armando Lion Unavailable [phone] Jenni Panchal Unavailable [phone] Sonya Allen Unavailable [phone] Siobhan Kiran Unavailable Unavailable Allergies Allergen (clinical drug ingredient) Drug/Non Drug Allergy documented on EMR Reaction Allergy Type Onset Date Status Information temporarily unavailable Cefzil Unknown Drug Allergy Active Information temporarily unavailable Penicillin Unknown Drug Allergy Active Information temporarily unavailable Strawberries Unknown Allergy Active Reason For Referral Reason REHAB PT and OT: MED X CERVICAL-LUMBAR Diagnosis 1 Low back pain, unspe cified (M54.50) Diagnosis 2 Cervicalgia (M54.2) Diagnosis 3 Dorsalgia, unspecifi ed (M54.9) Diagnosis 4 Cervicogenic headach e (G44.86) Diagnosis 5 Migraine without aur a, not intractable, without status migrainosus (G43.009) Diagnosis 6 Neuropathy, peripher al (G62.9) Referral Organization [facility] Referring Provider First Name Yuniel Referring Provider Last Name Bashir Referring Provider Speciality Occupation al Medicine Referred Organization z [facility] Referred Provider Mic Juan Referred Address [address] [facility] [facility] [address], [place],[address], Referred Provider Specialty Rehabilitati on General Notes Barbara Saravia 04/06/19 25 10:09:23 AM >[facility] Tracking # [id number], Barbara Saravia 04/18/2024 03:20:09 PM > approval #[id number]. Please attach appts to incoming referral. Ok to schedule, Layla Adan 04/19/2024 10:20:59 AM >Text sent, TE sent to Scheduling 3. Referral Priority Routine Reason Rehab PT visits Diagnosis 1 Other chronic pain ( G89.29) Referral Organization [facility] Referring Provider First Name Yuniel Referring Provider Last Name Bashir Referring Provider Speciality Occupation al Medicine Referred Organization [facility] Referred Provider Yuniel Camejo Referred Address [address] [facility], [place],[address], Referred Provider Specialty Occupational Medicine Referral Priority Routine Reason Rehab OT visits Diagnosis 1 Other chronic pain ( G89.29) Referral Organization [facility] Referring Provider First Name Yuniel Referring Provider Last Name Bashir Referring Provider Speciality Occupation al Medicine Referred Organization [facility] Referred Provider Yuniel Camejo Referred Address [address] [facility], [place],[address],[place] Referred Provider Specialty Occupational Medicine Referral Priority Routine Reason REHAB PT and OT: MED X CERVICAL-LUMBAR The insurer did approved for the patient a sufficient number of visits. However, due to delays in getting started we are now near their expiration date of July 05, 2024. I recommend the insurer extend that date at least 8 weeks. Diagnosis 1 Low back pain, unspe cified (M54.50) Diagnosis 2 Cervicalgia (M54.2) Diagnosis 3 Dorsalgia, unspecifi ed (M54.9) Diagnosis 4 Cervicogenic headach e (G44.86) Diagnosis 5 Migraine without aur a, not intractable, without status migrainosus (G43.009) Diagnosis 6 Neuropathy, peripher al (G62.9) Referral Organization [facility] Referring Provider First Name Yuniel Referring Provider Last Name Bashir Referring Provider Speciality Occupation al Medicine Referred Organization [facility] Referred Provider Mic Juan Referred Address [address] [facility],[address], Referred Provider Specialty Rehabilitati on General Notes Barbara Saravia 06/11/19 08:20:13 AM >Submitted online tracking # [id number], Barbara Saravia 06/16/2024 07:51:48 AM >Auth extended through 09/08/24. OK to schedule Referral Priority Routine Reason Rehab OT visits Diagnosis 1 Other chronic pain ( G89.29) Referral Organization [facility] Referring Provider First Name Yuniel Referring Provider Last Name Bashir Referring Provider Speciality Occupation al Medicine Referred Organization [facility] Referred Provider Yuniel Camejo Referred Address [address] [place], [place],[address], Referred Provider Specialty Occupational Medicine Referral Priority Routine Reason Rehab PT visits Diagnosis 1 Other chronic pain ( G89.29) Referral Organization [facility] Referring Provider First Name Yuniel Referring Provider Last Name Bashir Referring Provider Speciality Occupation al Medicine Referred Organization [facility] Referred Provider Yuniel Camejo Referred Address [address] [place], [place],[address], Referred Provider Specialty Occupational Medicine Referral Priority Routine Medications Medication SIG (Take, Route, Frequency, Duration) Notes Start Date End Date Status Naproxen 500 MG Tablet Oral; Duration: 22 Days Unknown Amphetamine-Dextroamphetam ine 20 MG Tablet Oral; Duration: 30 Days Unknown Social History Social History Tobacco Use: Social Info Question Answer Notes Smoking Are you a: current smoker Additional Details Category Social Info Options Details Miscellaneous: Marital status: single Problems Problem Type SNOMED Code ICD Code Onset Dates Problem Status W/U Status Risk Notes Problem Information temporarily unavailable Migraine without aura, not intractable, without status migrainosus (G43.009) Active confirmed Problem Information temporarily unavailable Other chronic pain (G89.29) Active confirmed Problem Information temporarily unavailable Cervicalgia (M54.2) Active confirmed Problem Information temporarily unavailable Dorsalgia, unspecified (M54.9) Active confirmed Problem Information temporarily unavailable Cervicogenic headache (G44.86) Active confirmed Problem Information temporarily unavailable Low back pain, unspecified (M54.50) Active confirmed Problem Information temporarily unavailable Neuropathy, peripheral (G62.9) Active confirmed Vital Signs Blood pressure diastolic 86 mm Hg 07/21/2024 Height 69 in 07/21/2024 Blood pressure systolic 128 mm Hg 07/21/2024 Weight 244 lbs 07/21/2024 BMI 36.03 kg/m2 07/21/2024 Encounters Encounter Location Date Provider Diagnosis [facility] [address] [place] [address] [address] [place] [address] 03/03/2024 Tony Roberts [facility] [address] [place] [address] [address] [place] [address] 04/19/2024 Yuniel Camejo [facility] [address] [place] [address] [address] [facility] [place] [address] 05/03/2024 Yuniel Camejo [facility] [address] [place] [address] 08/24/2024 Sonya Allen [facility] [address] [place] [address] 05/13/2024 Penny Jovanna Cervicalgia M54.2 ; Low back pain, unspecified M54.50 ; Dorsalgia, unspecified M54.9 ; Cervicogenic headache G44.86 and Migraine without aura, not intractable, without status migrainosus G43.009 [facility] [address] [place] [address] 11/25/2024 Siobhan Kiran Cervicalgia M54.2 ; Low back pain, unspecified M54.50 ; Dorsalgia, unspecified M54.9 ; Cervicogenic headache G44.86 and Migraine without aura, not intractable, without status migrainosus G43.009 [facility] [address] [place] [address] 11/22/2024 Sonya Alejandro Cervicalgia M54.2 ; Low back pain, unspecified M54.50 ; Dorsalgia, unspecified M54.9 ; Cervicogenic headache G44.86 and Migraine without aura, not intractable, without status migrainosus G43.009 [facility] [address] [place] [address] 05/11/2024 Armando Lion Cervicalgia M54.2 ; Low back pain, unspecified M54.50 ; Dorsalgia, unspecified M54.9 ; Cervicogenic headache G44.86 and Migraine without aura, not intractable, without status migrainosus G43.009 [facility] [address] [place] [address] 06/15/2024 Siobhan Zenisek Cervicalgia M54.2 ; Low back pain, unspecified M54.50 ; Dorsalgia, unspecified M54.9 ; Cervicogenic headache G44.86 and Migraine without aura, not intractable, without status migrainosus G43.009 [facility] [address] [place] [address] 06/17/2024 Jenni Corunna Cervicalgia M54.2 ; Low back pain, unspecified M54.50 ; Dorsalgia, unspecified M54.9 ; Cervicogenic headache G44.86 and Migraine without aura, not intractable, without status migrainosus G43.009 [facility] [address] [place] [address] 06/21/2024 Siobhan Zenisek Cervicalgia M54.2 ; Low back pain, unspecified M54.50 ; Dorsalgia, unspecified M54.9 ; Cervicogenic headache G44.86 and Migraine without aura, not intractable, without status migrainosus G43.009 [facility] [address] [place] [address] 06/24/2024 Siobhan Zenisek Cervicalgia M54.2 ; Low back pain, unspecified M54.50 ; Dorsalgia, unspecified M54.9 ; Cervicogenic headache G44.86 and Migraine without aura, not intractable, without status migrainosus G43.009 [facility] [address] [place] [address] 06/29/2024 Sonya Dayton Cervicalgia M54.2 ; Low back pain, unspecified M54.50 ; Dorsalgia, unspecified M54.9 ; Cervicogenic headache G44.86 and Migraine without aura, not intractable, without status migrainosus G43.009 [facility] [address] [place] [address] 07/01/2024 Sonya Alejandro Cervicalgia M54.2 ; Low back pain, unspecified M54.50 ; Dorsalgia, unspecified M54.9 ; Cervicogenic headache G44.86 and Migraine without aura, not intractable, without status migrainosus G43.009 [facility] [address] [place] [address] 07/06/2024 Siobhan Zenisek Cervicalgia M54.2 ; Low back pain, unspecified M54.50 ; Dorsalgia, unspecified M54.9 ; Cervicogenic headache G44.86 and Migraine without aura, not intractable, without status migrainosus G43.009 [facility] [address] [place] [address] 07/08/2024 Siobhan Zenisek Cervicalgia M54.2 ; Low back pain, unspecified M54.50 ; Dorsalgia, unspecified M54.9 ; Cervicogenic headache G44.86 and Migraine without aura, not intractable, without status migrainosus G43.009 [facility] [address] [place] [address] 07/13/2024 Armando Narveson Cervicalgia M54.2 ; Low back pain, unspecified M54.50 ; Dorsalgia, unspecified M54.9 ; Cervicogenic headache G44.86 and Migraine without aura, not intractable, without status migrainosus G43.009 [facility] [address] [place] [address] 07/15/2024 Sonya Dayton Cervicalgia M54.2 ; Low back pain, unspecified M54.50 ; Dorsalgia, unspecified M54.9 ; Cervicogenic headache G44.86 and Migraine without aura, not intractable, without status migrainosus G43.009 [facility] [address] [place] [address] 07/19/2024 Sonya Dayton Cervicalgia M54.2 ; Low back pain, unspecified M54.50 ; Dorsalgia, unspecified M54.9 ; Cervicogenic headache G44.86 and Migraine without aura, not intractable, without status migrainosus G43.009 [facility] [address] [place] [address] 07/22/2024 Siobhan Zenisek Cervicalgia M54.2 ; Low back pain, unspecified M54.50 ; Dorsalgia, unspecified M54.9 ; Cervicogenic headache G44.86 and Migraine without aura, not intractable, without status migrainosus G43.009 [facility] [address] [place] [address] 07/27/2024 Siobhan Zenisek Cervicalgia M54.2 ; Low back pain, unspecified M54.50 ; Dorsalgia, unspecified M54.9 ; Cervicogenic headache G44.86 and Migraine without aura, not intractable, without status migrainosus G43.009 [facility] [address] [place] [address] 07/29/2024 Sonya Allen Cervicalgia M54.2 ; Low back pain, unspecified M54.50 ; Dorsalgia, unspecified M54.9 ; Cervicogenic headache G44.86 and Migraine without aura, not intractable, without status migrainosus G43.009 [facility] [address] [place] [address] 08/03/2024 Siobhan Zenisek Cervicalgia M54.2 ; Low back pain, unspecified M54.50 ; Dorsalgia, unspecified M54.9 ; Cervicogenic headache G44.86 and Migraine without aura, not intractable, without status migrainosus G43.009 [facility] [address] [place] [address] 08/12/2024 Siobhan Zenisek Cervicalgia M54.2 ; Low back pain, unspecified M54.50 ; Dorsalgia, unspecified M54.9 ; Cervicogenic headache G44.86 and Migraine without aura, not intractable, without status migrainosus G43.009 [facility] [address] [place] [address] 08/19/2024 Armando Narveson Cervicalgia M54.2 ; Low back pain, unspecified M54.50 ; Dorsalgia, unspecified M54.9 ; Cervicogenic headache G44.86 and Migraine without aura, not intractable, without status migrainosus G43.009 [facility] [address] [place] [address] 08/23/2024 Siobhan Zenisek Cervicalgia M54.2 ; Low back pain, unspecified M54.50 ; Dorsalgia, unspecified M54.9 ; Cervicogenic headache G44.86 and Migraine without aura, not intractable, without status migrainosus G43.009 [facility] [address] [place] [address] 08/26/2024 Sonya Alejandro Cervicalgia M54.2 ; Low back pain, unspecified M54.50 ; Dorsalgia, unspecified M54.9 ; Cervicogenic headache G44.86 and Migraine without aura, not intractable, without status migrainosus G43.009 [facility] [address] [place] [address] 08/31/2024 Sonya Alejandro Cervicalgia M54.2 ; Low back pain, unspecified M54.50 ; Dorsalgia, unspecified M54.9 ; Cervicogenic headache G44.86 and Migraine without aura, not intractable, without status migrainosus G43.009 [facility] [address] [place] [address] 09/02/2024 Siobhan Zenisek Cervicalgia M54.2 ; Low back pain, unspecified M54.50 ; Dorsalgia, unspecified M54.9 ; Cervicogenic headache G44.86 and Migraine without aura, not intractable, without status migrainosus G43.009 [facility] [address] [place] [address] 09/07/2024 Sonya Dayton Cervicalgia M54.2 ; Low back pain, unspecified M54.50 ; Dorsalgia, unspecified M54.9 ; Cervicogenic headache G44.86 and Migraine without aura, not intractable, without status migrainosus G43.009 [facility] [address] [place] [address] 10/07/2024 Siobhan Zenisek Cervicalgia M54.2 ; Low back pain, unspecified M54.50 ; Dorsalgia, unspecified M54.9 ; Cervicogenic headache G44.86 and Migraine without aura, not intractable, without status migrainosus G43.009 [facility] [address] [place] [address] 10/10/2024 Siobhan Zenisek Cervicalgia M54.2 ; Low back pain, unspecified M54.50 ; Dorsalgia, unspecified M54.9 ; Cervicogenic headache G44.86 and Migraine without aura, not intractable, without status migrainosus G43.009 [facility] [address] [place] [address] 10/17/2024 Sonya Alejandro Cervicalgia M54.2 ; Low back pain, unspecified M54.50 ; Dorsalgia, unspecified M54.9 ; Cervicogenic headache G44.86 and Migraine without aura, not intractable, without status migrainosus G43.009 [facility] [address] [place] [address] 10/21/2024 Sonya Alejandro Cervicalgia M54.2 ; Low back pain, unspecified M54.50 ; Dorsalgia, unspecified M54.9 ; Cervicogenic headache G44.86 and Migraine without aura, not intractable, without status migrainosus G43.009 [facility] [address] [place] [address] 10/28/2024 Siobhan Zenisek Cervicalgia M54.2 ; Low back pain, unspecified M54.50 ; Dorsalgia, unspecified M54.9 ; Cervicogenic headache G44.86 and Migraine without aura, not intractable, without status migrainosus G43.009 [facility] [address] [place] [address] 11/03/2024 Sonya Dayton Cervicalgia M54.2 ; Low back pain, unspecified M54.50 ; Dorsalgia, unspecified M54.9 ; Cervicogenic headache G44.86 and Migraine without aura, not intractable, without status migrainosus G43.009 [facility] [address] [place] [address] 11/08/2024 Siobhan Zenisek Cervicalgia M54.2 ; Low back pain, unspecified M54.50 ; Dorsalgia, unspecified M54.9 ; Cervicogenic headache G44.86 and Migraine without aura, not intractable, without status migrainosus G43.009 [facility] [address] [facility] [place] [place] [address] 11/11/2024 Siobhan Zenisek Cervicalgia M54.2 ; Low back pain, unspecified M54.50 ; Dorsalgia, unspecified M54.9 ; Cervicogenic headache G44.86 and Migraine without aura, not intractable, without status migrainosus G43.009 [facility] [address] [facility] [place] [address] 11/14/2024 Sonya Dayton Cervicalgia M54.2 ; Low back pain, unspecified M54.50 ; Dorsalgia, unspecified M54.9 ; Cervicogenic headache G44.86 and Migraine without aura, not intractable, without status migrainosus G43.009 [facility] [address] [facility] [place] [address] 11/18/2024 Jenni Corunna Cervicalgia M54.2 ; Low back pain, unspecified M54.50 ; Dorsalgia, unspecified M54.9 ; Cervicogenic headache G44.86 and Migraine without aura, not intractable, without status migrainosus G43.009 [facility] [address] [facility] [place] [address] 05/18/2024 Sonya Dayton Cervicalgia M54.2 ; Low back pain, unspecified M54.50 ; Dorsalgia, unspecified M54.9 ; Cervicogenic headache G44.86 and Migraine without aura, not intractable, without status migrainosus G43.009 [facility] [address] [facility] [place] [address] 05/20/2024 Armando Narveson Cervicalgia M54.2 ; Low back pain, unspecified M54.50 ; Dorsalgia, unspecified M54.9 ; Cervicogenic headache G44.86 and Migraine without aura, not intractable, without status migrainosus G43.009 [facility] [address] [place] [address] 06/03/2024 Sonya Allen Cervicalgia M54.2 ; Low back pain, unspecified M54.50 ; Dorsalgia, unspecified M54.9 ; Cervicogenic headache G44.86 and Migraine without aura, not intractable, without status migrainosus G43.009 [facility] [address] [place] [address] 06/07/2024 Siobhan Kiran Cervicalgia M54.2 ; Low back pain, unspecified M54.50 ; Dorsalgia, unspecified M54.9 ; Cervicogenic headache G44.86 and Migraine without aura, not intractable, without status migrainosus G43.009 [facility] [address] [place] [address] 03/21/2024 Yuniel Camejo Low back pain, unspecified M54.50 ; Cervicalgia M54.2 ; Dorsalgia, unspecified M54.9 ; Cervicogenic headache G44.86 ; Migraine without aura, not intractable, without status migrainosus G43.009 and Neuropathy, peripheral G62.9 [facility] [address] [place] [address] 07/21/2024 Yuniel Camejo Low back pain, unspecified M54.50 ; Cervicalgia M54.2 ; Dorsalgia, unspecified M54.9 ; Cervicogenic headache G44.86 ; Neuropathy, peripheral G62.9 and Migraine without aura, not intractable, without status migrainosus G43.009 [facility] [address] [place] [address] 06/09/2024 Yuniel Camejo Low back pain, unspecified M54.50 ; Cervicalgia M54.2 ; Dorsalgia, unspecified M54.9 ; Cervicogenic headache G44.86 ; Migraine without aura, not intractable, without status migrainosus G43.009 and Neuropathy, peripheral G62.9 Assessments Encounter Date Diagnosis (ICD Code) Assessment Notes Treatment Notes Treatment Clinical Notes Section Notes 05/11/2024 Cervicalgia (ICD-10 - M54.2) 05/13/2024 Cervicalgia (ICD-10 - M54.2) 05/18/2024 Cervicalgia (ICD-10 - M54.2) 05/20/2024 Cervicalgia (ICD-10 - M54.2) 06/03/2024 Cervicalgia (ICD-10 - M54.2) 06/07/2024 Cervicalgia (ICD-10 - M54.2) 06/09/2024 Low back pain, unspecified (ICD-10 - M54.50) 1. The patient has completed 6 visits of therapy. He has been in the [employer] 4 visits. He is already showing some early strength gains. He has tremendous upside rehabilitation potential in terms of more strength gains available to him. He would like to continue with therapy, and I strongly recommend it. 2. While the patient was approved for a full course of therapy, it was some time ago and now those visits have an expiration date of July 05, 2024. Given the delays, we will be treating the patient beyond that date. I recommend the insurer extend the expiration date of the visits they have already approved. 3. Peter did keep his visit with [facility] neurology. They do suspect radicular symptoms in the lower extremities, or tarsal tunnel. Peter did have bilateral lower extremity EMG testing in December 2023. It was normal at that time. 4. Peter's surgeon is Marisol Palma M.D. in the [facility] system. The doctor and Peter are hoping to avoid surgery. MBB/RFA workup has been scheduled at [facility]. The first medial branch blocks will be performed on July 01, 2024. 5. The patient reports some improvement in his headache. 6. Today's evaluation occupied a full 35 minutes altogether including time spent preparing to see the patient and then providing this documentation. Prior to seeing the patient I did review previous office visit notes, therapy notes, exercise data, and imaging. 06/15/2024 Cervicalgia (ICD-10 - M54.2) 06/17/2024 Cervicalgia (ICD-10 - M54.2) 06/21/2024 Cervicalgia (ICD-10 - M54.2) 06/24/2024 Cervicalgia (ICD-10 - M54.2) 06/29/2024 Cervicalgia (ICD-10 - M54.2) 07/01/2024 Cervicalgia (ICD-10 - M54.2) 08/31/2024 Cervicalgia (ICD-10 - M54.2) 09/02/2024 Cervicalgia (ICD-10 - M54.2) 09/07/2024 Cervicalgia (ICD-10 - M54.2) 08/26/2024 Cervicalgia (ICD-10 - M54.2) 08/23/2024 Cervicalgia (ICD-10 - M54.2) 08/19/2024 Cervicalgia (ICD-10 - M54.2) 08/12/2024 Cervicalgia (ICD-10 - M54.2) 08/03/2024 Cervicalgia (ICD-10 - M54.2) 07/29/2024 Cervicalgia (ICD-10 - M54.2) 07/27/2024 Cervicalgia (ICD-10 - M54.2) 07/22/2024 Cervicalgia (ICD-10 - M54.2) 07/19/2024 Cervicalgia (ICD-10 - M54.2) 07/15/2024 Cervicalgia (ICD-10 - M54.2) 07/13/2024 Cervicalgia (ICD-10 - M54.2) 07/08/2024 Cervicalgia (ICD-10 - M54.2) 07/06/2024 Cervicalgia (ICD-10 - M54.2) 03/21/2024 Cervicalgia (ICD-10 - M54.2) 1 I believe Peter is an excellent candidate for the type of treatment available here at [facility]. I believe he will benefit from core and deep core muscle strength building to support the spine. We will utilize our MedX equipment to isolate on critical muscle groups to achieve, first, muscle re-education, recruitment and activation, and then strength. Range of motion and strength will be measured objectively, and the patient will work towards resistance goals calculated for them by the therapists. 2. 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 While there he suffered an injury skateboarding, falling onto his shoulder. He eventually underwent arthroscopic shoulder surgery. See the HPI section of this report. 3. Peter also developed his low back pain along with cervical and scapulothoracic symptoms while serving. He thinks maybe the fall which occurred in 2020, played a role. 4. Peter's advanced imaging is for the most part unremarkable. There is a small disc protrusion at the L5-S1 level. The imaging was obtained on December 10, 2023 in the [facility] system. He has been treating with the neurosurgery department. There is also mild L5-S1 disc height loss on that imaging along with mild facet joint arthropathy at the same level. All other levels were completely unremarkable. There is no central canal stenosis at any level. There is mild bilateral foraminal stenosis at the L5-S1 level. 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 No marrow edema was described. It is considered chronic by the radiologist. Elsewhere the patient tells me he has been told that the mild deformity may be developmental in nature. It could be injury related, although the most likely injury episode which would have produced an acute endplate compression dates to late June 2020. At this time I do not think this is an active clinical issue, and does not require any additional investigation. Peter has no history of osteoporosis or osteopenia. 5. The patient did receive an interlaminar epidural steroid injection at the L5-S1 level at [facility] on January 22, 2024. It did not provide any symptom relief. It's possible that bilateral transforaminal epidural injections could benefit the patient. These are not planned at this time. 6. Headache is a very significant issue for Peter. He may have 2 types of headache including a classic migraine which is temporal, as well as a cervicogenic headache at the occiput. One headache can initiate the other, it appears. I'm hopeful and optimistic that we will be able to help Peter particularly with the occipital headache. He will benefit from a complete headache evaluation in conjunction with MedX-based cervical core muscle strength building, stretching and improved posture. Manual therapy techniques will be attempted. The patient can be taught self-care techniques that will allow for self-headache management in the future. 7. Both physical therapists and occupational therapists will have input into developing the patient's plan of care. This will be an active biopsychosocial care approach. In some cases, we will utilize a cognitive-behavio ral coaching emphasis. 8. Peter has prominent trigger points in the cervical and scapulothoracic regions. In addition to stretching, strength building and postural improvements, they will likely benefit from certain manual therapy techniques. This includes teaching the patient to perform their own manual therapies for future self-management of symptoms. 9. In addition to strength building during appointment times, the patient will be provided a home exercise progression tailored to their needs. The goal will be to further improve functional mobility, strength, endurance and in some cases balance. The need for an aftercare exercise program will be addressed to help the patient maintain benefits gained during their course of treatment. 10. In the formal referral from [facility] Neurosurgery Department the principal diagnosis is lumbar radiculopathy. Peter has had lower extremity symptoms in the past, left side more so than right. He does describe an L5 nerve root distribution of symptoms in the past. Those symptoms have improved. It's possible that if the disc herniation at the L5-S1 level was acute at some point there could've been active inflammation around the site producing radicular symptoms. There is no evidence for nerve root or spinal cord compression on recent MRI scanning. Bilateral lower extremity EMG testing at [facility] was normal in mid December 2023. One could also consider piriformis syndrome as a source of those symptoms. 11. Peter tells us he has been diagnosed with lower extremity peripheral neuropathy. He states that this runs in his family, affecting some family members at a young age. He has an appointment with a neurologist in the [facility] system in April 2024. He states the focal point of the evaluation will be his peripheral neuropathy, looking for sources which could be treatable (such as vitamin deficiencies). At this point I think his migraine headache syndrome should be included in the consultation, and I encouraged him to contact the neurology department letting them know that there is a second problem to consider. He has not had the advantage of a neurology evaluation for migraine headache. His headache is quite impairing at this time. 12. Today's evaluation occupied a full 45 minutes altogether including time spent preparing to see the patient and then providing this documentation. Prior to seeing the patient I reviewed 3 outside MRI scans as well as EMG testing. Other outside medical records. The patient has widespread symptoms, and these were all discussed in detail. Other program topics and elements may include: 1. Instruction in body mechanics, ergonomics, and functional training. 2. Pain neuroscience. 3. Sleep and diet. 4. Non-pharmacologic pain management. 5. Manual therapy techniques including self-care. 6. Meditation techniques such as conscious napping. 03/21/2024 Low back pain, unspecified (ICD-10 - M54.50) 1 I believe Peter is an excellent candidate for the type of treatment available here at [facility]. I believe he will benefit from core and deep core muscle strength building to support the spine. We will utilize our MedX equipment to isolate on critical muscle groups to achieve, first, muscle re-education, recruitment and activation, and then strength. Range of motion and strength will be measured objectively, and the patient will work towards resistance goals calculated for them by the therapists. 2. 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 While there he suffered an injury skateboarding, falling onto his shoulder. He eventually underwent arthroscopic shoulder surgery. See the HPI section of this report. 3. Peter also developed his low back pain along with cervical and scapulothoracic symptoms while serving. He thinks maybe the fall which occurred in 2020, played a role. 4. Peter's advanced imaging is for the most part unremarkable. There is a small disc protrusion at the L5-S1 level. The imaging was obtained on December 10, 2023 in the [facility] system. He has been treating with the neurosurgery department. There is also mild L5-S1 disc height loss on that imaging along with mild facet joint arthropathy at the same level. All other levels were completely unremarkable. There is no central canal stenosis at any level. There is mild bilateral foraminal stenosis at the L5-S1 level. 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 No marrow edema was described. It is considered chronic by the radiologist. Elsewhere the patient tells me he has been told that the mild deformity may be developmental in nature. It could be injury related, although the most likely injury episode which would have produced an acute endplate compression dates to late June 2020. At this time I do not think this is an active clinical issue, and does not require any additional investigation. Peter has no history of osteoporosis or osteopenia. 5. The patient did receive an interlaminar epidural steroid injection at the L5-S1 level at [facility] on January 22, 2024. It did not provide any symptom relief. It's possible that bilateral transforaminal epidural injections could benefit the patient. These are not planned at this time. 6. Headache is a very significant issue for Peter. He may have 2 types of headache including a classic migraine which is temporal, as well as a cervicogenic headache at the occiput. One headache can initiate the other, it appears. I'm hopeful and optimistic that we will be able to help Peter particularly with the occipital headache. He will benefit from a complete headache evaluation in conjunction with MedX-based cervical core muscle strength building, stretching and improved posture. Manual therapy techniques will be attempted. The patient can be taught self-care techniques that will allow for self-headache management in the future. 7. Both physical therapists and occupational therapists will have input into developing the patient's plan of care. This will be an active biopsychosocial care approach. In some cases, we will utilize a cognitive-behavio ral coaching emphasis. 8. Peter has prominent trigger points in the cervical and scapulothoracic regions. In addition to stretching, strength building and postural improvements, they will likely benefit from certain manual therapy techniques. This includes teaching the patient to perform their own manual therapies for future self-management of symptoms. 9. In addition to strength building during appointment times, the patient will be provided a home exercise progression tailored to their needs. The goal will be to further improve functional mobility, strength, endurance and in some cases balance. The need for an aftercare exercise program will be addressed to help the patient maintain benefits gained during their course of treatment. 10. In the formal referral from [facility] Department the principal diagnosis is lumbar radiculopathy. Peter has had lower extremity symptoms in the past, left side more so than right. He does describe an L5 nerve root distribution of symptoms in the past. Those symptoms have improved. It's possible that if the disc herniation at the L5-S1 level was acute at some point there could've been active inflammation around the site producing radicular symptoms. There is no evidence for nerve root or spinal cord compression on recent MRI scanning. Bilateral lower extremity EMG testing at [facility] was normal in mid December 2023. One could also consider piriformis syndrome as a source of those symptoms. 11. Peter tells us he has been diagnosed with lower extremity peripheral neuropathy. He states that this runs in his family, affecting some family members at a young age. He has an appointment with a neurologist in the [facility] system in April 2024. He states the focal point of the evaluation will be his peripheral neuropathy, looking for sources which could be treatable (such as vitamin deficiencies). At this point I think his migraine headache syndrome should be included in the consultation, and I encouraged him to contact the neurology department letting them know that there is a second problem to consider. He has not had the advantage of a neurology evaluation for migraine headache. His headache is quite impairing at this time. 12. Today's evaluation occupied a full 45 minutes altogether including time spent preparing to see the patient and then providing this documentation. Prior to seeing the patient I reviewed 3 outside MRI scans as well as EMG testing. Other outside medical records. The patient has widespread symptoms, and these were all discussed in detail. Other program topics and elements may include: 1. Instruction in body mechanics, ergonomics, and functional training. 2. Pain neuroscience. 3. Sleep and diet. 4. Non-pharmacologic pain management. 5. Manual therapy techniques including self-care. 6. Meditation techniques such as conscious napping. 11/25/2024 Cervicalgia (ICD-10 - M54.2) 11/22/2024 Cervicalgia (ICD-10 - M54.2) 11/18/2024 Cervicalgia (ICD-10 - M54.2) 11/14/2024 Cervicalgia (ICD-10 - M54.2) 11/11/2024 Cervicalgia (ICD-10 - M54.2) 11/08/2024 Cervicalgia (ICD-10 - M54.2) 11/03/2024 Cervicalgia (ICD-10 - M54.2) 10/28/2024 Cervicalgia (ICD-10 - M54.2) 10/21/2024 Cervicalgia (ICD-10 - M54.2) 10/17/2024 Cervicalgia (ICD-10 - M54.2) 10/10/2024 Cervicalgia (ICD-10 - M54.2) 10/07/2024 Cervicalgia (ICD-10 - M54.2) 07/21/2024 Low back pain, unspecified (ICD-10 - M54.50) The patient has completed 17 visits of rehabilitation. They are making strength gains, objectively measured, in the MedX equipment. They are reporting modest improvements in symptoms, and function. There are much more strength gains available to them representing upside rehabilitation potential. They would like to continue with strength building rehabilitation, and I do recommend it. Peter would like to achieve maximum strength in the hopes of getting more improvement in symptoms and function. Today's evaluation occupied a full 35 minutes altogether including time spent preparing to see the patient and providing this documentation. Prior to seeing the patient I did review outside medical records including imaging, office visit notes, exercise data, therapy notes. 10/10/2024 Low back pain, unspecified (ICD-10 - M54.50) 10/07/2024 Low back pain, unspecified (ICD-10 - M54.50) 07/21/2024 Cervicalgia (ICD-10 - M54.2) The patient has completed 17 visits of rehabilitation. They are making strength gains, objectively measured, in the MedX equipment. They are reporting modest improvements in symptoms, and function. There are much more strength gains available to them representing upside rehabilitation potential. They would like to continue with strength building rehabilitation, and I do recommend it. Peter would like to achieve maximum strength in the hopes of getting more improvement in symptoms and function. Today's evaluation occupied a full 35 minutes altogether including time spent preparing to see the patient and providing this documentation. Prior to seeing the patient I did review outside medical records including imaging, office visit notes, exercise data, therapy notes. 10/17/2024 Low back pain, unspecified (ICD-10 - M54.50) 10/21/2024 Low back pain, unspecified (ICD-10 - M54.50) 10/28/2024 Low back pain, unspecified (ICD-10 - M54.50) 11/03/2024 Low back pain, unspecified (ICD-10 - M54.50) 11/08/2024 Low back pain, unspecified (ICD-10 - M54.50) 11/11/2024 Low back pain, unspecified (ICD-10 - M54.50) 11/14/2024 Low back pain, unspecified (ICD-10 - M54.50) 11/18/2024 Low back pain, unspecified (ICD-10 - M54.50) 11/22/2024 Low back pain, unspecified (ICD-10 - M54.50) 11/25/2024 Low back pain, unspecified (ICD-10 - M54.50) 03/21/2024 Dorsalgia, unspecified (ICD-10 - M54.9) 1 I believe Peter is an excellent candidate for the type of treatment available here at [facility]. I believe he will benefit from core and deep core muscle strength building to support the spine. We will utilize our MedX equipment to isolate on critical muscle groups to achieve, first, muscle re-education, recruitment and activation, and then strength. Range of motion and strength will be measured objectively, and the patient will work towards resistance goals calculated for them by the therapists. 2. 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 While there he suffered an injury skateboarding, falling onto his shoulder. He eventually underwent arthroscopic shoulder surgery. See the HPI section of this report. 3. Peter also developed his low back pain along with cervical and scapulothoracic symptoms while serving. He thinks maybe the fall which occurred in 2020, played a role. 4. Peter's advanced imaging is for the most part unremarkable. There is a small disc protrusion at the L5-S1 level. The imaging was obtained on December 10, 2023 in the [facility] system. He has been treating with the neurosurgery department. There is also mild L5-S1 disc height loss on that imaging along with mild facet joint arthropathy at the same level. All other levels were completely unremarkable. There is no central canal stenosis at any level. There is mild bilateral foraminal stenosis at the L5-S1 level. 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 No marrow edema was described. It is considered chronic by the radiologist. Elsewhere the patient tells me he has been told that the mild deformity may be developmental in nature. It could be injury related, although the most likely injury episode which would have produced an acute endplate compression dates to late June 2020. At this time I do not think this is an active clinical issue, and does not require any additional investigation. Peter has no history of osteoporosis or osteopenia. 5. The patient did receive an interlaminar epidural steroid injection at the L5-S1 level at [facility] on January 22, 2024. It did not provide any symptom relief. It's possible that bilateral transforaminal epidural injections could benefit the patient. These are not planned at this time. 6. Headache is a very significant issue for Peter. He may have 2 types of headache including a classic migraine which is temporal, as well as a cervicogenic headache at the occiput. One headache can initiate the other, it appears. I'm hopeful and optimistic that we will be able to help Peter particularly with the occipital headache. He will benefit from a complete headache evaluation in conjunction with MedX-based cervical core muscle strength building, stretching and improved posture. Manual therapy techniques will be attempted. The patient can be taught self-care techniques that will allow for self-headache management in the future. 7. Both physical therapists and occupational therapists will have input into developing the patient's plan of care. This will be an active biopsychosocial care approach. In some cases, we will utilize a cognitive-behavio ral coaching emphasis. 8. Peter has prominent trigger points in the cervical and scapulothoracic regions. In addition to stretching, strength building and postural improvements, they will likely benefit from certain manual therapy techniques. This includes teaching the patient to perform their own manual therapies for future self-management of symptoms. 9. In addition to strength building during appointment times, the patient will be provided a home exercise progression tailored to their needs. The goal will be to further improve functional mobility, strength, endurance and in some cases balance. The need for an aftercare exercise program will be addressed to help the patient maintain benefits gained during their course of treatment. 10. In the formal referral from [facility] Department the principal diagnosis is lumbar radiculopathy. Peter has had lower extremity symptoms in the past, left side more so than right. He does describe an L5 nerve root distribution of symptoms in the past. Those symptoms have improved. It's possible that if the disc herniation at the L5-S1 level was acute at some point there could've been active inflammation around the site producing radicular symptoms. There is no evidence for nerve root or spinal cord compression on recent MRI scanning. Bilateral lower extremity EMG testing at [facility] was normal in mid December 2023. One could also consider piriformis syndrome as a source of those symptoms. 11. Peter tells us he has been diagnosed with lower extremity peripheral neuropathy. He states that this runs in his family, affecting some family members at a young age. He has an appointment with a neurologist in the [facility] system in April 2024. He states the focal point of the evaluation will be his peripheral neuropathy, looking for sources which could be treatable (such as vitamin deficiencies). At this point I think his migraine headache syndrome should be included in the consultation, and I encouraged him to contact the neurology department letting them know that there is a second problem to consider. He has not had the advantage of a neurology evaluation for migraine headache. His headache is quite impairing at this time. 12. Today's evaluation occupied a full 45 minutes altogether including time spent preparing to see the patient and then providing this documentation. Prior to seeing the patient I reviewed 3 outside MRI scans as well as EMG testing. Other outside medical records. The patient has widespread symptoms, and these were all discussed in detail. Other program topics and elements may include: 1. Instruction in body mechanics, ergonomics, and functional training. 2. Pain neuroscience. 3. Sleep and diet. 4. Non-pharmacologic pain management. 5. Manual therapy techniques including self-care. 6. Meditation techniques such as conscious napping. 07/06/2024 Low back pain, unspecified (ICD-10 - M54.50) 07/08/2024 Low back pain, unspecified (ICD-10 - M54.50) 07/13/2024 Low back pain, unspecified (ICD-10 - M54.50) 07/15/2024 Low back pain, unspecified (ICD-10 - M54.50) 07/19/2024 Low back pain, unspecified (ICD-10 - M54.50) 07/22/2024 Low back pain, unspecified (ICD-10 - M54.50) 07/27/2024 Low back pain, unspecified (ICD-10 - M54.50) 07/29/2024 Low back pain, unspecified (ICD-10 - M54.50) 08/03/2024 Low back pain, unspecified (ICD-10 - M54.50) 08/12/2024 Low back pain, unspecified (ICD-10 - M54.50) 08/19/2024 Low back pain, unspecified (ICD-10 - M54.50) 08/23/2024 Low back pain, unspecified (ICD-10 - M54.50) 08/26/2024 Low back pain, unspecified (ICD-10 - M54.50) 09/07/2024 Low back pain, unspecified (ICD-10 - M54.50) 09/02/2024 Low back pain, unspecified (ICD-10 - M54.50) 08/31/2024 Low back pain, unspecified (ICD-10 - M54.50) 07/01/2024 Low back pain, unspecified (ICD-10 - M54.50) 06/29/2024 Low back pain, unspecified (ICD-10 - M54.50) 06/24/2024 Low back pain, unspecified (ICD-10 - M54.50) 06/21/2024 Low back pain, unspecified (ICD-10 - M54.50) 06/17/2024 Low back pain, unspecified (ICD-10 - M54.50) 06/15/2024 Low back pain, unspecified (ICD-10 - M54.50) 06/09/2024 Cervicalgia (ICD-10 - M54.2) 1. The patient has completed 6 visits of therapy. He has been in the Med[employer] equipment 4 visits. He is already showing some early strength gains. He has tremendous upside rehabilitation potential in terms of more strength gains available to him. He would like to continue with therapy, and I strongly recommend it. 2. While the patient was approved for a full course of therapy, it was some time ago and now those visits have an expiration date of July 05, 2024. Given the delays, we will be treating the patient beyond that date. I recommend the insurer extend the expiration date of the visits they have already approved. 3. Peter did keep his visit with [facility] neurology. They do suspect radicular symptoms in the lower extremities, or tarsal tunnel. Peter did have bilateral lower extremity EMG testing in December 2023. It was normal at that time. 4. Peter's surgeon is Marisol Palma M.D. in the [facility] system. The doctor and Peter are hoping to avoid surgery. MBB/RFA workup has been scheduled at [facility]. The first medial branch blocks will be performed on July 01, 2024. 5. The patient reports some improvement in his headache. 6. Today's evaluation occupied a full 35 minutes altogether including time spent preparing to see the patient and then providing this documentation. Prior to seeing the patient I did review previous office visit notes, therapy notes, exercise data, and imaging. 06/07/2024 Low back pain, unspecified (ICD-10 - M54.50) 06/03/2024 Low back pain, unspecified (ICD-10 - M54.50) 05/20/2024 Low back pain, unspecified (ICD-10 - M54.50) 05/18/2024 Low back pain, unspecified (ICD-10 - M54.50) 05/13/2024 Low back pain, unspecified (ICD-10 - M54.50) 05/11/2024 Low back pain, unspecified (ICD-10 - M54.50) 05/11/2024 Dorsalgia, unspecified (ICD-10 - M54.9) 05/13/2024 Dorsalgia, unspecified (ICD-10 - M54.9) 05/18/2024 Dorsalgia, unspecified (ICD-10 - M54.9) 05/20/2024 Dorsalgia, unspecified (ICD-10 - M54.9) 06/03/2024 Dorsalgia, unspecified (ICD-10 - M54.9) 06/07/2024 Dorsalgia, unspecified (ICD-10 - M54.9) 06/09/2024 Dorsalgia, unspecified (ICD-10 - M54.9) 1. The patient has completed 6 visits of therapy. He has been in the Med[employer] equipment 4 visits. He is already showing some early strength gains. He has tremendous upside rehabilitation potential in terms of more strength gains available to him. He would like to continue with therapy, and I strongly recommend it. 2. While the patient was approved for a full course of therapy, it was some time ago and now those visits have an expiration date of July 05, 2024. Given the delays, we will be treating the patient beyond that date. I recommend the insurer extend the expiration date of the visits they have already approved. 3. Peter did keep his visit with [facility] neurology. They do suspect radicular symptoms in the lower extremities, or tarsal tunnel. Peter did have bilateral lower extremity EMG testing in December 2023. It was normal at that time. 4. Peter's surgeon is Marisol Palma M.D. in the [facility] system. The doctor and Peter are hoping to avoid surgery. MBB/RFA workup has been scheduled at [facility]. The first medial branch blocks will be performed on July 01, 2024. 5. The patient reports some improvement in his headache. 6. Today's evaluation occupied a full 35 minutes altogether including time spent preparing to see the patient and then providing this documentation. Prior to seeing the patient I did review previous office visit notes, therapy notes, exercise data, and imaging. 06/15/2024 Dorsalgia, unspecified (ICD-10 - M54.9) 06/17/2024 Dorsalgia, unspecified (ICD-10 - M54.9) 06/21/2024 Dorsalgia, unspecified (ICD-10 - M54.9) 06/24/2024 Dorsalgia, unspecified (ICD-10 - M54.9) 06/29/2024 Dorsalgia, unspecified (ICD-10 - M54.9) 07/01/2024 Dorsalgia, unspecified (ICD-10 - M54.9) 08/31/2024 Dorsalgia, unspecified (ICD-10 - M54.9) 09/02/2024 Dorsalgia, unspecified (ICD-10 - M54.9) 09/07/2024 Dorsalgia, unspecified (ICD-10 - M54.9) 08/26/2024 Dorsalgia, unspecified (ICD-10 - M54.9) 08/23/2024 Dorsalgia, unspecified (ICD-10 - M54.9) 08/19/2024 Dorsalgia, unspecified (ICD-10 - M54.9) 08/12/2024 Dorsalgia, unspecified (ICD-10 - M54.9) 08/03/2024 Dorsalgia, unspecified (ICD-10 - M54.9) 07/29/2024 Dorsalgia, unspecified (ICD-10 - M54.9) 07/27/2024 Dorsalgia, unspecified (ICD-10 - M54.9) 07/22/2024 Dorsalgia, unspecified (ICD-10 - M54.9) 07/19/2024 Dorsalgia, unspecified (ICD-10 - M54.9) 07/15/2024 Dorsalgia, unspecified (ICD-10 - M54.9) 07/13/2024 Dorsalgia, unspecified (ICD-10 - M54.9) 07/08/2024 Dorsalgia, unspecified (ICD-10 - M54.9) 07/06/2024 Dorsalgia, unspecified (ICD-10 - M54.9) 03/21/2024 Cervicogenic headache (ICD-10 - G44.86) 1 I believe Peter is an excellent candidate for the type of treatment available here at [facility]. I believe he will benefit from core and deep core muscle strength building to support the spine. We will utilize our MedX equipment to isolate on critical muscle groups to achieve, first, muscle re-education, recruitment and activation, and then strength. Range of motion and strength will be measured objectively, and the patient will work towards resistance goals calculated for them by the therapists. 2. 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 While there he suffered an injury skateboarding, falling onto his shoulder. He eventually underwent arthroscopic shoulder surgery. See the HPI section of this report. 3. Peter also developed his low back pain along with cervical and scapulothoracic symptoms while serving. He thinks maybe the fall which occurred in 2020, played a role. 4. Peter's advanced imaging is for the most part unremarkable. There is a small disc protrusion at the L5-S1 level. The imaging was obtained on December 10, 2023 in the [facility] system. He has been treating with the neurosurgery department. There is also mild L5-S1 disc height loss on that imaging along with mild facet joint arthropathy at the same level. All other levels were completely unremarkable. There is no central canal stenosis at any level. There is mild bilateral foraminal stenosis at the L5-S1 level. 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 No marrow edema was described. It is considered chronic by the radiologist. Elsewhere the patient tells me he has been told that the mild deformity may be developmental in nature. It could be injury related, although the most likely injury episode which would have produced an acute endplate compression dates to late June 2020. At this time I do not think this is an active clinical issue, and does not require any additional investigation. Peter has no history of osteoporosis or osteopenia. 5. The patient did receive an interlaminar epidural steroid injection at the L5-S1 level at [facility] on January 22, 2024. It did not provide any symptom relief. It's possible that bilateral transforaminal epidural injections could benefit the patient. These are not planned at this time. 6. Headache is a very significant issue for Peter. He may have 2 types of headache including a classic migraine which is temporal, as well as a cervicogenic headache at the occiput. One headache can initiate the other, it appears. I'm hopeful and optimistic that we will be able to help Peter particularly with the occipital headache. He will benefit from a complete headache evaluation in conjunction with MedX-based cervical core muscle strength building, stretching and improved posture. Manual therapy techniques will be attempted. The patient can be taught self-care techniques that will allow for self-headache management in the future. 7. Both physical therapists and occupational therapists will have input into developing the patient's plan of care. This will be an active biopsychosocial care approach. In some cases, we will utilize a cognitive-behavio ral coaching emphasis. 8. Peter has prominent trigger points in the cervical and scapulothoracic regions. In addition to stretching, strength building and postural improvements, they will likely benefit from certain manual therapy techniques. This includes teaching the patient to perform their own manual therapies for future self-management of symptoms. 9. In addition to strength building during appointment times, the patient will be provided a home exercise progression tailored to their needs. The goal will be to further improve functional mobility, strength, endurance and in some cases balance. The need for an aftercare exercise program will be addressed to help the patient maintain benefits gained during their course of treatment. 10. In the formal referral from [facility] Neurosurgery Department the principal diagnosis is lumbar radiculopathy. Peter has had lower extremity symptoms in the past, left side more so than right. He does describe an L5 nerve root distribution of symptoms in the past. Those symptoms have improved. It's possible that if the disc herniation at the L5-S1 level was acute at some point there could've been active inflammation around the site producing radicular symptoms. There is no evidence for nerve root or spinal cord compression on recent MRI scanning. Bilateral lower extremity EMG testing at [facility] was normal in mid December 2023. One could also consider piriformis syndrome as a source of those symptoms. 11. Peter tells us he has been diagnosed with lower extremity peripheral neuropathy. He states that this runs in his family, affecting some family members at a young age. He has an appointment with a neurologist in the [facility] system in April 2024. He states the focal point of the evaluation will be his peripheral neuropathy, looking for sources which could be treatable (such as vitamin deficiencies). At this point I think his migraine headache syndrome should be included in the consultation, and I encouraged him to contact the neurology department letting them know that there is a second problem to consider. He has not had the advantage of a neurology evaluation for migraine headache. His headache is quite impairing at this time. 12. Today's evaluation occupied a full 45 minutes altogether including time spent preparing to see the patient and then providing this documentation. Prior to seeing the patient I reviewed 3 outside MRI scans as well as EMG testing. Other outside medical records. The patient has widespread symptoms, and these were all discussed in detail. Other program topics and elements may include: 1. Instruction in body mechanics, ergonomics, and functional training. 2. Pain neuroscience. 3. Sleep and diet. 4. Non-pharmacologic pain management. 5. Manual therapy techniques including self-care. 6. Meditation techniques such as conscious napping. 11/22/2024 Dorsalgia, unspecified (ICD-10 - M54.9) 11/25/2024 Dorsalgia, unspecified (ICD-10 - M54.9) 11/18/2024 Dorsalgia, unspecified (ICD-10 - M54.9) 11/14/2024 Dorsalgia, unspecified (ICD-10 - M54.9) 11/11/2024 Dorsalgia, unspecified (ICD-10 - M54.9) 11/08/2024 Dorsalgia, unspecified (ICD-10 - M54.9) 11/03/2024 Dorsalgia, unspecified (ICD-10 - M54.9) 10/28/2024 Dorsalgia, unspecified (ICD-10 - M54.9) 10/21/2024 Dorsalgia, unspecified (ICD-10 - M54.9) 10/17/2024 Dorsalgia, unspecified (ICD-10 - M54.9) 10/10/2024 Dorsalgia, unspecified (ICD-10 - M54.9) 07/21/2024 Dorsalgia, unspecified (ICD-10 - M54.9) The patient has completed 17 visits of rehabilitation. They are making strength gains, objectively measured, in the MedX equipment. They are reporting modest improvements in symptoms, and function. There are much more strength gains available to them representing upside rehabilitation potential. They would like to continue with strength building rehabilitation, and I do recommend it. Peter would like to achieve maximum strength in the hopes of getting more improvement in symptoms and function. Today's evaluation occupied a full 35 minutes altogether including time spent preparing to see the patient and providing this documentation. Prior to seeing the patient I did review outside medical records including imaging, office visit notes, exercise data, therapy notes. 10/07/2024 Dorsalgia, unspecified (ICD-10 - M54.9) 10/07/2024 Cervicogenic headache (ICD-10 - G44.86) 07/21/2024 Cervicogenic headache (ICD-10 - G44.86) The patient has completed 17 visits of rehabilitation. They are making strength gains, objectively measured, in the MedX equipment. They are reporting modest improvements in symptoms, and function. There are much more strength gains available to them representing upside rehabilitation potential. They would like to continue with strength building rehabilitation, and I do recommend it. Peter would like to achieve maximum strength in the hopes of getting more improvement in symptoms and function. Today's evaluation occupied a full 35 minutes altogether including time spent preparing to see the patient and providing this documentation. Prior to seeing the patient I did review outside medical records including imaging, office visit notes, exercise data, therapy notes. 10/10/2024 Cervicogenic headache (ICD-10 - G44.86) 10/17/2024 Cervicogenic headache (ICD-10 - G44.86) 10/21/2024 Cervicogenic headache (ICD-10 - G44.86) 10/28/2024 Cervicogenic headache (ICD-10 - G44.86) 11/03/2024 Cervicogenic headache (ICD-10 - G44.86) 11/08/2024 Cervicogenic headache (ICD-10 - G44.86) 11/11/2024 Cervicogenic headache (ICD-10 - G44.86) 11/14/2024 Cervicogenic headache (ICD-10 - G44.86) 11/18/2024 Cervicogenic headache (ICD-10 - G44.86) 11/25/2024 Cervicogenic headache (ICD-10 - G44.86) 11/22/2024 Cervicogenic headache (ICD-10 - G44.86) 03/21/2024 Migraine without aura, not intractable, without status migrainosus (ICD-10 - G43.009) 1 I believe Peter is an excellent candidate for the type of treatment available here at [facility]. I believe he will benefit from core and deep core muscle strength building to support the spine. We will utilize our MedX equipment to isolate on critical muscle groups to achieve, first, muscle re-education, recruitment and activation, and then strength. Range of motion and strength will be measured objectively, and the patient will work towards resistance goals calculated for them by the therapists. 2. 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 While there he suffered an injury skateboarding, falling onto his shoulder. He eventually underwent arthroscopic shoulder surgery. See the HPI section of this report. 3. Peter also developed his low back pain along with cervical and scapulothoracic symptoms while serving. He thinks maybe the fall which occurred in 2020, played a role. 4. Peter's advanced imaging is for the most part unremarkable. There is a small disc protrusion at the L5-S1 level. The imaging was obtained on December 10, 2023 in the [facility] system. He has been treating with the neurosurgery department. There is also mild L5-S1 disc height loss on that imaging along with mild facet joint arthropathy at the same level. All other levels were completely unremarkable. There is no central canal stenosis at any level. There is mild bilateral foraminal stenosis at the L5-S1 level. 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 No marrow edema was described. It is considered chronic by the radiologist. Elsewhere the patient tells me he has been told that the mild deformity may be developmental in nature. It could be injury related, although the most likely injury episode which would have produced an acute endplate compression dates to late June 2020. At this time I do not think this is an active clinical issue, and does not require any additional investigation. Peter has no history of osteoporosis or osteopenia. 5. The patient did receive an interlaminar epidural steroid injection at the L5-S1 level at [facility] on January 22, 2024. It did not provide any symptom relief. It's possible that bilateral transforaminal epidural injections could benefit the patient. These are not planned at this time. 6. Headache is a very significant issue for Peter. He may have 2 types of headache including a classic migraine which is temporal, as well as a cervicogenic headache at the occiput. One headache can initiate the other, it appears. I'm hopeful and optimistic that we will be able to help Peter particularly with the occipital headache. He will benefit from a complete headache evaluation in conjunction with MedX-based cervical core muscle strength building, stretching and improved posture. Manual therapy techniques will be attempted. The patient can be taught self-care techniques that will allow for self-headache management in the future. 7. Both physical therapists and occupational therapists will have input into developing the patient's plan of care. This will be an active biopsychosocial care approach. In some cases, we will utilize a cognitive-behavio ral coaching emphasis. 8. Peter has prominent trigger points in the cervical and scapulothoracic regions. In addition to stretching, strength building and postural improvements, they will likely benefit from certain manual therapy techniques. This includes teaching the patient to perform their own manual therapies for future self-management of symptoms. 9. In addition to strength building during appointment times, the patient will be provided a home exercise progression tailored to their needs. The goal will be to further improve functional mobility, strength, endurance and in some cases balance. The need for an aftercare exercise program will be addressed to help the patient maintain benefits gained during their course of treatment. 10. In the formal referral from [facility] Neuro[facility] Department the principal diagnosis is lumbar radiculopathy. Peter has had lower extremity symptoms in the past, left side more so than right. He does describe an L5 nerve root distribution of symptoms in the past. Those symptoms have improved. It's possible that if the disc herniation at the L5-S1 level was acute at some point there could've been active inflammation around the site producing radicular symptoms. There is no evidence for nerve root or spinal cord compression on recent MRI scanning. Bilateral lower extremity EMG testing at [facility] was normal in mid December 2023. One could also consider piriformis syndrome as a source of those symptoms. 11. Peter tells us he has been diagnosed with lower extremity peripheral neuropathy. He states that this runs in his family, affecting some family members at a young age. He has an appointment with a neurologist in the [facility] system in April 2024. He states the focal point of the evaluation will be his peripheral neuropathy, looking for sources which could be treatable (such as vitamin deficiencies). At this point I think his migraine headache syndrome should be included in the consultation, and I encouraged him to contact the neurology department letting them know that there is a second problem to consider. He has not had the advantage of a neurology evaluation for migraine headache. His headache is quite impairing at this time. 12. Today's evaluation occupied a full 45 minutes altogether including time spent preparing to see the patient and then providing this documentation. Prior to seeing the patient I reviewed 3 outside MRI scans as well as EMG testing. Other outside medical records. The patient has widespread symptoms, and these were all discussed in detail. Other program topics and elements may include: 1. Instruction in body mechanics, ergonomics, and functional training. 2. Pain neuroscience. 3. Sleep and diet. 4. Non-pharmacologic pain management. 5. Manual therapy techniques including self-care. 6. Meditation techniques such as conscious napping. 07/06/2024 Cervicogenic headache (ICD-10 - G44.86) 07/08/2024 Cervicogenic headache (ICD-10 - G44.86) 07/13/2024 Cervicogenic headache (ICD-10 - G44.86) 07/15/2024 Cervicogenic headache (ICD-10 - G44.86) 07/19/2024 Cervicogenic headache (ICD-10 - G44.86) 07/22/2024 Cervicogenic headache (ICD-10 - G44.86) 07/27/2024 Cervicogenic headache (ICD-10 - G44.86) 07/29/2024 Cervicogenic headache (ICD-10 - G44.86) 08/03/2024 Cervicogenic headache (ICD-10 - G44.86) 08/12/2024 Cervicogenic headache (ICD-10 - G44.86) 08/19/2024 Cervicogenic headache (ICD-10 - G44.86) 08/23/2024 Cervicogenic headache (ICD-10 - G44.86) 08/26/2024 Cervicogenic headache (ICD-10 - G44.86) 09/07/2024 Cervicogenic headache (ICD-10 - G44.86) 09/02/2024 Cervicogenic headache (ICD-10 - G44.86) 08/31/2024 Cervicogenic headache (ICD-10 - G44.86) 07/01/2024 Cervicogenic headache (ICD-10 - G44.86) 06/29/2024 Cervicogenic headache (ICD-10 - G44.86) 06/24/2024 Cervicogenic headache (ICD-10 - G44.86) 06/21/2024 Cervicogenic headache (ICD-10 - G44.86) 06/17/2024 Cervicogenic headache (ICD-10 - G44.86) 06/15/2024 Cervicogenic headache (ICD-10 - G44.86) 06/09/2024 Cervicogenic headache (ICD-10 - G44.86) 1. The patient has completed 6 visits of therapy. He has been in the MedX equipment 4 visits. He is already showing some early strength gains. He has tremendous upside rehabilitation potential in terms of more strength gains available to him. He would like to continue with therapy, and I strongly recommend it. 2. While the patient was approved for a full course of therapy, it was some time ago and now those visits have an expiration date of July 05, 2024. Given the delays, we will be treating the patient beyond that date. I recommend the insurer extend the expiration date of the visits they have already approved. 3. Peter did keep his visit with [facility] neurology. They do suspect radicular symptoms in the lower extremities, or tarsal tunnel. Peter did have bilateral lower extremity EMG testing in December 2023. It was normal at that time. 4. Peter's surgeon is Marisol Palma M.D. in the [facility] system. The doctor and Peter are hoping to avoid surgery. MBB/RFA workup has been scheduled at [facility]. The first medial branch blocks will be performed on July 01, 2024. 5. The patient reports some improvement in his headache. 6. Today's evaluation occupied a full 35 minutes altogether including time spent preparing to see the patient and then providing this documentation. Prior to seeing the patient I did review previous office visit notes, therapy notes, exercise data, and imaging. 06/07/2024 Cervicogenic headache (ICD-10 - G44.86) 06/03/2024 Cervicogenic headache (ICD-10 - G44.86) 05/20/2024 Cervicogenic headache (ICD-10 - G44.86) 05/18/2024 Cervicogenic headache (ICD-10 - G44.86) 05/13/2024 Cervicogenic headache (ICD-10 - G44.86) 05/11/2024 Cervicogenic headache (ICD-10 - G44.86) 05/11/2024 Migraine without aura, not intractable, without status migrainosus (ICD-10 - G43.009) 05/13/2024 Migraine without aura, not intractable, without status migrainosus (ICD-10 - G43.009) 05/18/2024 Migraine without aura, not intractable, without status migrainosus (ICD-10 - G43.009) 05/20/2024 Migraine without aura, not intractable, without status migrainosus (ICD-10 - G43.009) 06/03/2024 Migraine without aura, not intractable, without status migrainosus (ICD-10 - G43.009) 06/07/2024 Migraine without aura, not intractable, without status migrainosus (ICD-10 - G43.009) 06/09/2024 Migraine without aura, not intractable, without status migrainosus (ICD-10 - G43.009) 1. The patient has completed 6 visits of therapy. He has been in the MedX equipment 4 visits. He is already showing some early strength gains. He has tremendous upside rehabilitation potential in terms of more strength gains available to him. He would like to continue with therapy, and I strongly recommend it. 2. While the patient was approved for a full course of therapy, it was some time ago and now those visits have an expiration date of July 05, 2024. Given the delays, we will be treating the patient beyond that date. I recommend the insurer extend the expiration date of the visits they have already approved. 3. Peter did keep his visit with [facility] neurology. They do suspect radicular symptoms in the lower extremities, or tarsal tunnel. Peter did have bilateral lower extremity EMG testing in December 2023. It was normal at that time. 4. Peter's surgeon is Marisol Palma M.D. in the [facility] system. The doctor and Peter are hoping to avoid surgery. MBB/RFA workup has been scheduled at [facility]. The first medial branch blocks will be performed on July 01, 2024. 5. The patient reports some improvement in his headache. 6. Today's evaluation occupied a full 35 minutes altogether including time spent preparing to see the patient and then providing this documentation. Prior to seeing the patient I did review previous office visit notes, therapy notes, exercise data, and imaging. 06/15/2024 Migraine without aura, not intractable, without status migrainosus (ICD-10 - G43.009) 06/17/2024 Migraine without aura, not intractable, without status migrainosus (ICD-10 - G43.009) 06/21/2024 Migraine without aura, not intractable, without status migrainosus (ICD-10 - G43.009) 06/24/2024 Migraine without aura, not intractable, without status migrainosus (ICD-10 - G43.009) 06/29/2024 Migraine without aura, not intractable, without status migrainosus (ICD-10 - G43.009) 07/01/2024 Migraine without aura, not intractable, without status migrainosus (ICD-10 - G43.009) 08/31/2024 Migraine without aura, not intractable, without status migrainosus (ICD-10 - G43.009) 09/02/2024 Migraine without aura, not intractable, without status migrainosus (ICD-10 - G43.009) 09/07/2024 Migraine without aura, not intractable, without status migrainosus (ICD-10 - G43.009) 08/26/2024 Migraine without aura, not intractable, without status migrainosus (ICD-10 - G43.009) 08/23/2024 Migraine without aura, not intractable, without status migrainosus (ICD-10 - G43.009) 08/19/2024 Migraine without aura, not intractable, without status migrainosus (ICD-10 - G43.009) 08/12/2024 Migraine without aura, not intractable, without status migrainosus (ICD-10 - G43.009) 08/03/2024 Migraine without aura, not intractable, without status migrainosus (ICD-10 - G43.009) 07/29/2024 Migraine without aura, not intractable, without status migrainosus (ICD-10 - G43.009) 07/27/2024 Migraine without aura, not intractable, without status migrainosus (ICD-10 - G43.009) 07/22/2024 Migraine without aura, not intractable, without status migrainosus (ICD-10 - G43.009) 07/19/2024 Migraine without aura, not intractable, without status migrainosus (ICD-10 - G43.009) 07/15/2024 Migraine without aura, not intractable, without status migrainosus (ICD-10 - G43.009) 07/13/2024 Migraine without aura, not intractable, without status migrainosus (ICD-10 - G43.009) 07/08/2024 Migraine without aura, not intractable, without status migrainosus (ICD-10 - G43.009) 07/06/2024 Migraine without aura, not intractable, without status migrainosus (ICD-10 - G43.009) 11/22/2024 Migraine without aura, not intractable, without status migrainosus (ICD-10 - G43.009) 03/21/2024 Neuropathy, peripheral (ICD-10 - G62.9) 1 I believe Peter is an excellent candidate for the type of treatment available here at [facility]. I believe he will benefit from core and deep core muscle strength building to support the spine. We will utilize our MedX equipment to isolate on critical muscle groups to achieve, first, muscle re-education, recruitment and activation, and then strength. Range of motion and strength will be measured objectively, and the patient will work towards resistance goals calculated for them by the therapists. 2. 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 While there he suffered an injury skateboarding, falling onto his shoulder. He eventually underwent arthroscopic shoulder surgery. See the HPI section of this report. 3. Peter also developed his low back pain along with cervical and scapulothoracic symptoms while serving. He thinks maybe the fall which occurred in 2020, played a role. 4. Peter's advanced imaging is for the most part unremarkable. There is a small disc protrusion at the L5-S1 level. The imaging was obtained on December 10, 2023 in the [facility] system. He has been treating with the neurosurgery department. There is also mild L5-S1 disc height loss on that imaging along with mild facet joint arthropathy at the same level. All other levels were completely unremarkable. There is no central canal stenosis at any level. There is mild bilateral foraminal stenosis at the L5-S1 level. 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 No marrow edema was described. It is considered chronic by the radiologist. Elsewhere the patient tells me he has been told that the mild deformity may be developmental in nature. It could be injury related, although the most likely injury episode which would have produced an acute endplate compression dates to late June 2020. At this time I do not think this is an active clinical issue, and does not require any additional investigation. Peter has no history of osteoporosis or osteopenia. 5. The patient did receive an interlaminar epidural steroid injection at the L5-S1 level at [facility] on January 22, 2024. It did not provide any symptom relief. It's possible that bilateral transforaminal epidural injections could benefit the patient. These are not planned at this time. 6. Headache is a very significant issue for Peter. He may have 2 types of headache including a classic migraine which is temporal, as well as a cervicogenic headache at the occiput. One headache can initiate the other, it appears. I'm hopeful and optimistic that we will be able to help Peter particularly with the occipital headache. He will benefit from a complete headache evaluation in conjunction with MedX-based cervical core muscle strength building, stretching and improved posture. Manual therapy techniques will be attempted. The patient can be taught self-care techniques that will allow for self-headache management in the future. 7. Both physical therapists and occupational therapists will have input into developing the patient's plan of care. This will be an active biopsychosocial care approach. In some cases, we will utilize a cognitive-behavio ral coaching emphasis. 8. Peter has prominent trigger points in the cervical and scapulothoracic regions. In addition to stretching, strength building and postural improvements, they will likely benefit from certain manual therapy techniques. This includes teaching the patient to perform their own manual therapies for future self-management of symptoms. 9. In addition to strength building during appointment times, the patient will be provided a home exercise progression tailored to their needs. The goal will be to further improve functional mobility, strength, endurance and in some cases balance. The need for an aftercare exercise program will be addressed to help the patient maintain benefits gained during their course of treatment. 10. In the formal referral from [facility] Department the principal diagnosis is lumbar radiculopathy. Peter has had lower extremity symptoms in the past, left side more so than right. He does describe an L5 nerve root distribution of symptoms in the past. Those symptoms have improved. It's possible that if the disc herniation at the L5-S1 level was acute at some point there could've been active inflammation around the site producing radicular symptoms. There is no evidence for nerve root or spinal cord compression on recent MRI scanning. Bilateral lower extremity EMG testing at [facility] was normal in mid December 2023. One could also consider piriformis syndrome as a source of those symptoms. 11. Peter tells us he has been diagnosed with lower extremity peripheral neuropathy. He states that this runs in his family, affecting some family members at a young age. He has an appointment with a neurologist in the [facility] system in April 2024. He states the focal point of the evaluation will be his peripheral neuropathy, looking for sources which could be treatable (such as vitamin deficiencies). At this point I think his migraine headache syndrome should be included in the consultation, and I encouraged him to contact the neurology department letting them know that there is a second problem to consider. He has not had the advantage of a neurology evaluation for migraine headache. His headache is quite impairing at this time. 12. Today's evaluation occupied a full 45 minutes altogether including time spent preparing to see the patient and then providing this documentation. Prior to seeing the patient I reviewed 3 outside MRI scans as well as EMG testing. Other outside medical records. The patient has widespread symptoms, and these were all discussed in detail. Other program topics and elements may include: 1. Instruction in body mechanics, ergonomics, and functional training. 2. Pain neuroscience. 3. Sleep and diet. 4. Non-pharmacologic pain management. 5. Manual therapy techniques including self-care. 6. Meditation techniques such as conscious napping. 11/25/2024 Migraine without aura, not intractable, without status migrainosus (ICD-10 - G43.009) 11/18/2024 Migraine without aura, not intractable, without status migrainosus (ICD-10 - G43.009) 11/14/2024 Migraine without aura, not intractable, without status migrainosus (ICD-10 - G43.009) 11/11/2024 Migraine without aura, not intractable, without status migrainosus (ICD-10 - G43.009) 11/08/2024 Migraine without aura, not intractable, without status migrainosus (ICD-10 - G43.009) 11/03/2024 Migraine without aura, not intractable, without status migrainosus (ICD-10 - G43.009) 10/28/2024 Migraine without aura, not intractable, without status migrainosus (ICD-10 - G43.009) 10/21/2024 Migraine without aura, not intractable, without status migrainosus (ICD-10 - G43.009) 10/17/2024 Migraine without aura, not intractable, without status migrainosus (ICD-10 - G43.009) 10/10/2024 Migraine without aura, not intractable, without status migrainosus (ICD-10 - G43.009) 10/07/2024 Migraine without aura, not intractable, without status migrainosus (ICD-10 - G43.009) 07/21/2024 Neuropathy, peripheral (ICD-10 - G62.9) The patient has completed 17 visits of rehabilitation. They are making strength gains, objectively measured, in the MedX equipment. They are reporting modest improvements in symptoms, and function. There are much more strength gains available to them representing upside rehabilitation potential. They would like to continue with strength building rehabilitation, and I do recommend it. Peter would like to achieve maximum strength in the hopes of getting more improvement in symptoms and function. Today's evaluation occupied a full 35 minutes altogether including time spent preparing to see the patient and providing this documentation. Prior to seeing the patient I did review outside medical records including imaging, office visit notes, exercise data, therapy notes. 07/21/2024 Migraine without aura, not intractable, without status migrainosus (ICD-10 - G43.009) The patient has completed 17 visits of rehabilitation. They are making strength gains, objectively measured, in the MedX equipment. They are reporting modest improvements in symptoms, and function. There are much more strength gains available to them representing upside rehabilitation potential. They would like to continue with strength building rehabilitation, and I do recommend it. Peter would like to achieve maximum strength in the hopes of getting more improvement in symptoms and function. Today's evaluation occupied a full 35 minutes altogether including time spent preparing to see the patient and providing this documentation. Prior to seeing the patient I did review outside medical records including imaging, office visit notes, exercise data, therapy notes. 06/09/2024 Neuropathy, peripheral (ICD-10 - G62.9) 1. The patient has completed 6 visits of therapy. He has been in the MedX equipment 4 visits. He is already showing some early strength gains. He has tremendous upside rehabilitation potential in terms of more strength gains available to him. He would like to continue with therapy, and I strongly recommend it. 2. While the patient was approved for a full course of therapy, it was some time ago and now those visits have an expiration date of July 05, 2024. Given the delays, we will be treating the patient beyond that date. I recommend the insurer extend the expiration date of the visits they have already approved. 3. Peter did keep his visit with [facility] neurology. They do suspect radicular symptoms in the lower extremities, or tarsal tunnel. Peter did have bilateral lower extremity EMG testing in December 2023. It was normal at that time. 4. Peter's surgeon is Marisol Palma M.D. in the [facility] system. The doctor and Peter are hoping to avoid surgery. MBB/RFA workup has been scheduled at [facility]. The first medial branch blocks will be performed on July 01, 2024. 5. The patient reports some improvement in his headache. 6. Today's evaluation occupied a full 35 minutes altogether including time spent preparing to see the patient and then providing this documentation. Prior to seeing the patient I did review previous office visit notes, therapy notes, exercise data, and imaging. 07/21/2024 Other Lynsey Flowers, am serving as a scribe to document services personally performed by Yuniel Camejo MD, based upon my observations and the provider's statements to me. All documentation has been reviewed by the aforementioned doctor prior to being entered into the official medical record. IYuniel MD attest that the above named individual is acting in scribe capacity, has observed my performance of the services and has documented them in accordance with my direction. The documentation recorded by the scribe accurately reflects the service I personally performed and the decisions made by me. The patient has completed 17 visits of rehabilitation. They are making strength gains, objectively measured, in the MedX equipment. They are reporting modest improvements in symptoms, and function. There are much more strength gains available to them representing upside rehabilitation potential. They would like to continue with strength building rehabilitation, and I do recommend it. Peter would like to achieve maximum strength in the hopes of getting more improvement in symptoms and function. Today's evaluation occupied a full 35 minutes altogether including time spent preparing to see the patient and providing this documentation. Prior to seeing the patient I did review outside medical records including imaging, office visit notes, exercise data, therapy notes. 03/21/2024 Other Lionel, Lynsey Palmer, am serving as a scribe to document services personally performed by Yuniel Camejo MD, based upon my observations and the provider's statements to me. All documentation has been reviewed by the aforementioned doctor prior to being entered into the official medical record. Yuniel Flowers MD attest that the above named individual is acting in scribe capacity, has observed my performance of the services and has documented them in accordance with my direction. The documentation recorded by the scribe accurately reflects the service I personally performed and the decisions made by me. 1 I believe Peter is an excellent candidate for the type of treatment available here at [facility]. I believe he will benefit from core and deep core muscle strength building to support the spine. We will utilize our MedX equipment to isolate on critical muscle groups to achieve, first, muscle re-education, recruitment and activation, and then strength. Range of motion and strength will be measured objectively, and the patient will work towards resistance goals calculated for them by the therapists. 2. 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 While there he suffered an injury skateboarding, falling onto his shoulder. He eventually underwent arthroscopic shoulder surgery. See the HPI section of this report. 3. Peter also developed his low back pain along with cervical and scapulothoracic symptoms while serving. He thinks maybe the fall which occurred in 2020, played a role. 4. Peter's advanced imaging is for the most part unremarkable. There is a small disc protrusion at the L5-S1 level. The imaging was obtained on December 10, 2023 in the [facility] system. He has been treating with the neurosurgery department. There is also mild L5-S1 disc height loss on that imaging along with mild facet joint arthropathy at the same level. All other levels were completely unremarkable. There is no central canal stenosis at any level. There is mild bilateral foraminal stenosis at the L5-S1 level. 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 No marrow edema was described. It is considered chronic by the radiologist. Elsewhere the patient tells me he has been told that the mild deformity may be developmental in nature. It could be injury related, although the most likely injury episode which would have produced an acute endplate compression dates to late June 2020. At this time I do not think this is an active clinical issue, and does not require any additional investigation. Peter has no history of osteoporosis or osteopenia. 5. The patient did receive an interlaminar epidural steroid injection at the L5-S1 level at [facility] on January 22, 2024. It did not provide any symptom relief. It's possible that bilateral transforaminal epidural injections could benefit the patient. These are not planned at this time. 6. Headache is a very significant issue for Peter. He may have 2 types of headache including a classic migraine which is temporal, as well as a cervicogenic headache at the occiput. One headache can initiate the other, it appears. I'm hopeful and optimistic that we will be able to help Peter particularly with the occipital headache. He will benefit from a complete headache evaluation in conjunction with MedX-based cervical core muscle strength building, stretching and improved posture. Manual therapy techniques will be attempted. The patient can be taught self-care techniques that will allow for self-headache management in the future. 7. Both physical therapists and occupational therapists will have input into developing the patient's plan of care. This will be an active biopsychosocial care approach. In some cases, we will utilize a cognitive-behavio ral coaching emphasis. 8. Peter has prominent trigger points in the cervical and scapulothoracic regions. In addition to stretching, strength building and postural improvements, they will likely benefit from certain manual therapy techniques. This includes teaching the patient to perform their own manual therapies for future self-management of symptoms. 9. In addition to strength building during appointment times, the patient will be provided a home exercise progression tailored to their needs. The goal will be to further improve functional mobility, strength, endurance and in some cases balance. The need for an aftercare exercise program will be addressed to help the patient maintain benefits gained during their course of treatment. 10. In the formal referral from [facility] Department the principal diagnosis is lumbar radiculopathy. Peter has had lower extremity symptoms in the past, left side more so than right. He does describe an L5 nerve root distribution of symptoms in the past. Those symptoms have improved. It's possible that if the disc herniation at the L5-S1 level was acute at some point there could've been active inflammation around the site producing radicular symptoms. There is no evidence for nerve root or spinal cord compression on recent MRI scanning. Bilateral lower extremity EMG testing at [facility] was normal in mid December 2023. One could also consider piriformis syndrome as a source of those symptoms. 11. Peter tells us he has been diagnosed with lower extremity peripheral neuropathy. He states that this runs in his family, affecting some family members at a young age. He has an appointment with a neurologist in the [facility] system in April 2024. He states the focal point of the evaluation will be his peripheral neuropathy, looking for sources which could be treatable (such as vitamin deficiencies). At this point I think his migraine headache syndrome should be included in the consultation, and I encouraged him to contact the neurology department letting them know that there is a second problem to consider. He has not had the advantage of a neurology evaluation for migraine headache. His headache is quite impairing at this time. 12. Today's evaluation occupied a full 45 minutes altogether including time spent preparing to see the patient and then providing this documentation. Prior to seeing the patient I reviewed 3 outside MRI scans as well as EMG testing. Other outside medical records. The patient has widespread symptoms, and these were all discussed in detail. Other program topics and elements may include: 1. Instruction in body mechanics, ergonomics, and functional training. 2. Pain neuroscience. 3. Sleep and diet. 4. Non-pharmacologic pain management. 5. Manual therapy techniques including self-care. 6. Meditation techniques such as conscious napping. 06/09/2024 Other I, Krissy Lopez , am serving as a scribe to document services personally performed by Yuniel Camejo MD, based upon my observations and the provider's statements to me. All documentation has been reviewed by the aforementioned doctor prior to being entered into the official medical record. I, Yuniel Camejo MD attest that the above named individual is acting in scribe capacity, has observed my performance of the services and has documented them in accordance with my direction. The documentation recorded by the scribe accurately reflects the service I personally performed and the decisions made by me. 1. The patient has completed 6 visits of therapy. He has been in the MedX equipment 4 visits. He is already showing some early strength gains. He has tremendous upside rehabilitation potential in terms of more strength gains available to him. He would like to continue with therapy, and I strongly recommend it. 2. While the patient was approved for a full course of therapy, it was some time ago and now those visits have an expiration date of July 05, 2024. Given the delays, we will be treating the patient beyond that date. I recommend the insurer extend the expiration date of the visits they have already approved. 3. Peter did keep his visit with [facility] neurology. They do suspect radicular symptoms in the lower extremities, or tarsal tunnel. Peter did have bilateral lower extremity EMG testing in December 2023. It was normal at that time. 4. Peter's surgeon is Marisol Palma M.D. in the [facility] system. The doctor and Peter are hoping to avoid surgery. MBB/RFA workup has been scheduled at [facility]. The first medial branch blocks will be performed on July 01, 2024. 5. The patient reports some improvement in his headache. 6. Today's evaluation occupied a full 35 minutes altogether including time spent preparing to see the patient and then providing this documentation. Prior to seeing the patient I did review previous office visit notes, therapy notes, exercise data, and imaging. Plan Of Treatment No Information Insurance Providers Payer Name Payer Address Payer Phone Subscriber Number Group Number Insured Name Patient Relationship to Insured Coverage Start Date Coverage End Date [facility] [address] [place] [phone] [id number] Peter Larios Self - patient is the insured Medical (General) History Surgical History Surgery Date(Month/Year) left shoulder surgery, bicep 02/17/23 Hospitalization History Reason Date(Month/Year) surgical
--- OUTSIDE RECORDS SUMMARY | 2025-02-25 15:49 | XMS_ITS | Encounter Summary ---
Author Organization [facility] Address [address] [place] [address] Care Team Providers Care Glass Blowing Instructor Name Role Phone No Ref-Primary, Physician Primary Care Provider Evan Navarro MD Unavailable [phone] Bernie Florez PA-C Unavailable Marisol Palma APRN LAP MACHINE OPERATOR Unavailable Bernie Florez PA-C Primary Care Pro vider Leidy Richard PA-C Unavailable [phone] Encounter Details Date Type Department Care Team (Late st Contact Info) Description 07/05/2024 My[facility] Medical Advice [facility] Spine and Neurosurgery [address] [place] [phone] Marisol Palma APRN LAP MACHINE OPERATOR [address] [place], [place] [phone] Social History Tobacco Use Types Packs/Day Years [...] re latives? Once a week 12/04/2023 Attends [employer] Services Not on file 12/03 Active Member of Clubs or Organizations Not on f ile 12/04/2023 Attends Club or Organization Meetings Not on lincoln e 12/04/2023 Marital Status Not on file 12/04/2023 PHQ-2 Answer Date Recorded PHQ-2 Score 6 04/01/2024 [facility]ational Stress Questionnaire Answer Date Recorded [...] in an abandoned building, in an overnight group home, or couch-surfing.) Yes 12/04/2023 Are you worried [...] getting things that you need? No 12/04/2023 Sex and Gender Information Value Date Recorded Sex Assigned at Male 01/27/2022 6:52 AM CDT Legal Sex Male 1:00 PM CDT Gender Identity Male 01/27/2022 6:52 AM CDT Sexual Orientation Straight 01/27/2022 6: 52 AM CDT documented as of this encounter Plan of Treatment Upcoming Encounters Date Type Department Care Team (Late st Contact Info) Description 03/14/2025 1:30 PM DATA CLERK Office Visit [facility] [address] [facility] [address] [place] [phone] 03/15/2025 8:30 AM DATA CLERK Documentation Only [facility] [address] [place] [address] [place] [phone] 07/20/2025 9:00 AM CDT Office Visit [facility] [address] [phone] Leidy Richard PA-C [address] [address] [place] [phone] documented as of this encounter Visit Diagnoses Not on filedocumented in this encounter Additional Health Concerns Assessment Noted Time PHQ-9 Depression Total Score: 20 025 10:01 AM DATA CLERK documented as of this encounter Care Teams Glass Blowing Instructor Relationship Specialty Start Date End Date No Ref-Primary, Physician PCP - General 11/25/21 08/10/24 Bernie Florez PA-C [address] [place] [address] PCP - General Family Medicine 08/11/24 Evan Navarro MD [address] [facility] [address] Assigned Musculoskeletal Provider 01/25/22 01/18/25 Bernie Florez PA-C [address] [place] [address] Assigned PCP 07/05/22 Marisol Palma APRN LAP MACHINE OPERATOR [address] [place] [address] Assigned Neuroscience Provider 12/21/23 Leidy Richard PA-C [address] [facility] [address] [place] [address] Assigned Sleep Provider 12/20/24 documented as of this encounter
--- OUTSIDE RECORDS SUMMARY | 2025-02-25 15:49 | XMS_ITS | Clinical Summary ---
Author Organization [facility] Address [address], [place] [address] Care Team Providers Care Consulting Technical Director Name Role Phone No Primary/Referring, Phy Primary Care Provider Unavailable Source Comments You are receiving this document as you are listed as the primary care provider,follow-up provider, or the patient has been referred to you for consultation.This is in compliance with the Medicare andMedicaid EHR Incentive Program,which states Providers who transition their patient to another setting of careor provider of care or refers their patient to another provider of care shouldprovide summary care record for each transition of care or referral. [employer] Allergies Active Allergy Reactions Criticality Noted Date Comments Amoxicillin Rash 06/27/2018 Cefprozil Rash 06/27/2018 Social History Tobacco Use Types Packs/Day Years Used Date Smoking Tobacco: Never Assessed Sex and Gender Information Value Date Recorded Sex Assigned at Not on file Legal Sex Male 7:14 AM CDT Gender Identity Not on file Sexual Orientation Not on file Last Filed Vital Signs Vital Sign Reading Time Taken Comments Blood Pressure 130/76 06/27/2018 4:36 PM CDT Pulse 85 06/27/2018 4:36 PM CDT Temperature 36.9 C (98.5 F) 06/27/2018 4:36 PM CDT Respiratory Rate 20 06/27/2018 4:36 PM CDT Oxygen Saturation 98% 06/27/2018 4:36 PM CDT Inhaled Oxygen Concentration - - Weight 81.6 kg (180 lb) 06/27/2018 4:36 PM CDT Height 175.3 cm (5' 9) 06/27/2018 4:36 PM CDT Body Mass Index 26.58 06/27/2018 4:36 PM CDT Plan of Treatment Health Maintenance Due Date Last Done Comments Hep C Screening (Preventive Services) 1998 IPV (Polio) Vaccine (2 of 3 - 4-dose series) 07/20/2003 06/22/2003 HIV Screening (Preventive Services) 2014 Adult Preventive Visit 2016 HepB Vaccine (1) 2017 DTaP/Tdap/Td Vaccine (3 - Tdap) 11/26/2020 11/26/2010, 06/22/2003 COVID-19 Vaccine (3 - 2024-2 6 season) 2024 05/09/2020, 04/11/2020 Influenza Vaccine (#1) 2024 6, 03/09/2015, 11/26/2010 Zoster/Shingles Vaccine (1 o f 2) 2048 HepA Vaccine Completed 04/18/2010, 08/30/2009 MCV4 Vaccine Aged Out 11/26/2010 No longer eligi ble based on patient's age to complete this topic HPV Vaccine Completed 04/19/2012, 11/26/2010 Hib Vaccine Aged Out No longer eligi ble based on patient's age to complete this topic Meningococcal B Vaccine Aged Out No l onger eligible based on patient's age to complete this topic Pneumococcal Vaccine Aged Out No long er eligible based on patient's age to complete this topic Insurance [id number] [place] [id number] MISC INS WORK COMP WC Comp Care Teams Consulting Technical Director Relationship Specialty Start Date End Date No Primary/Referring, Phy PCP - General 06/27/18
--- OUTSIDE RECORDS SUMMARY | 2025-02-25 15:49 | XMS_ITS | Encounter Summary ---
Author Organization [place] Address [address] [facility] [place] [address] Care Team Providers Care Concreter Name Role Phone Evan Navarro MD Unavailable [phone] Bernie Florez PA-C Unavailable Marisol Palma APRN PERSONAL INJURY PARALEGAL Unavailable Bernie Florez PA-C Primary Care Pro vider Leidy Richard PA-C Unavailable [phone] Encounter Details Date Type Department Care Team (Late st Contact Info) Description 08/24/2024 [facility] Medical Advice [facility] Spine and Neurosurgery [address] [place] [phone] Marisol Palma, KYRA PERSONAL INJURY PARALEGAL [address] [place] [address] Social History Tobacco Use Types Packs/Day Years [...] re latives? Once a week 12/04/2023 Attends [employer] Services Not on file 12/03 Active Member of Clubs or Organizations Not on f ile 12/04/2023 Attends Club or Organization Meetings Not on lincoln e 12/04/2023 Marital Status Not on file 12/04/2023 PHQ-2 Answer Date Recorded PHQ-2 Score 6 04/01/2024 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 [address] [phone] 03/15/2025 8:30 AM MACHINE PACKER Documentation Only [place] [address] [place] [phone] 07/20/2025 9:00 AM CDT Office [place] [address] [place] [phone] Leidy Richard PA-C [address] [phone] documented as of this encounter Visit Diagnoses Not on filedocumented in this encounter Additional Health Concerns Assessment Noted Time PHQ-9 Depression Total Score: 20 025 10:01 AM MACHINE PACKER documented as of this encounter Care Teams Concreter Relationship Specialty Start Date End Date Bernie Florez PA-C [address] [place] [address] [address] PCP - General Family Medicine 08/11/24 Evan Navarro MD [address] [facility] [place] [address] Assigned Musculoskeletal Provider 01/25/22 01/18/25 Bernie Florez PA-C [address] [place] [address] Assigned PCP 07/05/22 Marisol Palma APRN PERSONAL INJURY PARALEGAL [address] [place] [address] Assigned Neuroscience Provider 12/21/23 Leidy Richard PA-C [address] [address] Assigned Sleep Provider 12/20/24 documented as of this encounter
== END 2025-02-25 16:19 | disposition home or self-care (01) ==
PROVIDERS: Emergency Provider Student in an Organized Health Care Education/Training Program
DX: S46.912A Strain of unspecified muscle, fascia and tendon at shoulder and upper arm level, left arm, initial encounter (principal); V44.5XXA Car driver injured in collision with heavy transport vehicle or bus in traffic accident, initial encounter
CPT/HCPCS: 73030; 99283